=== PATIENT | female | born 1970 | race African-American/Black ===

== ENCOUNTER 2017-07-30 20:07 | Emergency (ER) | payer OTHER ==
[~2017-07-30] VITALS: Ht 172.7 cm; Wt 88.0 kg
[2017-07-30 20:11] VITALS: BP 140/98
== END 2017-07-30 20:35 | disposition left against medical advice (07) ==
LOC: ER 20:07
DX: Z00.8 Encounter for other general examination (principal); Z53.21 Procedure and treatment not carried out due to patient leaving prior to being seen by health care provider

== ENCOUNTER 2018-06-28 17:25 | Emergency (ER) | payer OTHER ==
[~2018-06-28] VITALS: Ht 167.6 cm; Wt 97.0 kg
[2018-06-28] MEDS ORDERED: LIDOCAINE HCL/EPINEPHRINE 1%-EPI 1:100,000 50 ML VIAL INFIL SCH (19:20)
[2018-06-28] MEDS ORDERED: LIDOCAINE HCL/EPINEPHRINE 1%-EPI 1:100,000 20 ML VIAL INFIL ONE (19:30)
[2018-06-28] MEDS ORDERED: TETANUS, DIPHTHERIA, PERTUSSIS VAC/PF 0.5ML (>7YR OLD) IM ONE (21:00)
[2018-06-28] MEDS ORDERED: HYDROCODONE/ACETAMINOPHEN 5/325MG TABLET PO ONE (21:00)
[2018-06-28 22:00] VITALS: BP 132/76
== END 2018-06-28 22:00 | disposition home or self-care (01) ==
LOC: ER 17:26
DX: S51.811A Laceration without foreign body of right forearm, initial encounter (principal); J45.909 Unspecified asthma, uncomplicated; I10 Essential (primary) hypertension; Y08.89XA Assault by other specified means, initial encounter; Y93.89 Activity, other specified; Y92.89 Other specified places as the place of occurrence of the external cause; Y99.8 Other external cause status
CPT/HCPCS: 12034; 73090; 90471; 90715; 99284; J3490; Z7610

== ENCOUNTER 2018-07-17 10:48 | Emergency (ER) | payer MEDICAID, OTHER ==
[~2018-07-17] VITALS: Ht 170.2 cm; Wt 117.5 kg
[2018-07-17 10:54] VITALS: BP 156/98
== END 2018-07-17 11:45 | disposition home or self-care (01) ==
LOC: ER 11:22
DX: S51.811D Laceration without foreign body of right forearm, subsequent encounter (principal); J45.909 Unspecified asthma, uncomplicated; I10 Essential (primary) hypertension; X58.XXXD Exposure to other specified factors, subsequent encounter; Z48.02 Encounter for removal of sutures
CPT/HCPCS: 99281; Z7610

== ENCOUNTER 2023-08-24 18:38 | Inpatient (IN) | payer MEDICAID, OTHER ==
[~2023-08-24] VITALS: Ht 167.6 cm; Wt 136.1 kg
[2023-08-24] MEDS ORDERED: EPINEPHRINE 1:1000 1 MG/ML AMP IM ONE (19:00)
[2023-08-24] MEDS ORDERED: METHYLPREDNISOLONE SOD SUCC 125MG/2ML (ACT-O-VIAL) IV ONE (19:00)
[2023-08-24] MEDS ORDERED: KETAMINE HCL 50 MG/ML 10ML IV ONE (19:00)
[2023-08-24] MEDS ORDERED: DIPHENHYDRAMINE 50MG/ML VIAL IV ONE (19:00)
[2023-08-24] MEDS ORDERED: SUCCINYLCHOLINE CHLORIDE 200MG/10ML IV ONE (19:00)
[2023-08-24] MEDS ORDERED: ONDANSETRON HCL 4MG/2ML INJ ONE (19:06)
[2023-08-24] MEDS ORDERED: ONDANSETRON HCL 4MG/2ML INJ IV ONE (19:15)
[2023-08-24] MEDS ORDERED: FENTANYL 2500MCG/250ML PMX 250 ML IV PRN (19:45)
[2023-08-24] MEDS ORDERED: MIDAZOLAM HCL 100 MG in SODIUM CHLORIDE 0.9% 100 ML IV PRN (19:45)
[2023-08-24] MEDS ORDERED: MIDAZOLAM 100MG/100ML PMX 100 ML IV PRN (19:45)
[2023-08-24] MEDS ORDERED: TRANEXAMIC ACID 1,000 MG/10 ML IV ONE (19:45)
[2023-08-24] MEDS ORDERED: FENTANYL CITRATE 2,500 MCG in SODIUM CHLORIDE 0.9% 200 ML IV PRN (19:45)
[2023-08-24] MEDS ORDERED: EPINEPHRINE 10 MG in SODIUM CHLORIDE 0.9% 240 ML IV PRN ×4 (20:00)
[2023-08-24] MEDS ORDERED: ATOR20TA65 PO (20:48)
[2023-08-24] MEDS ORDERED: LISI20TA31 PO (20:48)
[2023-08-24] MEDS ORDERED: HYDR-4009 PO (20:48)
[2023-08-24] MEDS ORDERED: CARI350T27 PO (20:48)
[2023-08-24] MEDS ORDERED: HYDR50TA PO (20:48)
[2023-08-24] MEDS ORDERED: AMLO10TA80 PO (20:48)
[2023-08-24 20:57] VITALS: PULSE 103; RESP 28
[2023-08-24] MEDS ORDERED: FAMOTIDINE 20MG/2ML VIAL IV SCH (21:00)
[2023-08-24] MEDS ORDERED: RACEPINEPHRINE 2.25% 0.5ML NEB VIAL HHN NR (21:15)
[2023-08-24 21:37] LABS: BASOPHILS % 0.1 % (0.0-2.0); EOSINOPHILS % 0.6 % (0.0-5.0); HEMATOCRIT. 30.4 % (36.0-48.0); HEMOGLOBIN. 9.9 g/dL (12.0-16.0); LYMPHOCYTES % 15.7 % (20.0-50.0); MEAN CORPUSCULAR HEMOGLOBIN 31.8 pg (28.0-32.0); MEAN CORPUSCULAR HGB CONC 32.7 g/dL (31.0-37.0); MEAN CORPUSCULAR VOLUME 97.4 fL (81.0-99.0); MEAN PLATELET VOLUME 7.4 fl (7.4-10.4); MONOCYTES % 1.5 % (2.0-8.0); NEUTROPHILS % 82.1 % (40.0-76.0); PLATELET 290 x1000/uL (130-400); RED BLOOD CELL COUNT 3.13 mill/uL (4.2-5.4); RED CELL DISTRIBUTION WIDTH 17.5 % (11.6-14.6); WHITE BLOOD COUNT 13.1 x1000/uL (4.5-11.0)
[2023-08-24] MEDS: PROPOFOL 10MG/ML 100ML 100 ML IV PRN (21:43)
[2023-08-24] MEDS ORDERED: CEFEPIME 2,000 MG in DEXT 5% WATER 100 ML IV SCH (22:00)
[2023-08-24] MEDS ORDERED: VANCOMYCIN 1G PREMIX 200 ML IV SCH (22:00)
[2023-08-24 22:03] LABS: BG CARBOXYHEMOGLOBIN 0.3 % (0.5-1.5); BG DEOXYHEMOGLOBIN 2.9 % (0.0-5.0); BG FRACTION INSPIRED OXYGEN 100; BG HCO3 ACT 22.4 mmol/L (22.0-26.0); BG METHEMOGLOBIN 0.1 % (0.0-1.5); BG OXYGEN SATURATION 97.1 % (92.0-98.5); BG OXYHEMOGLOBIN 96.7 % (94.0-97.0); BG PCO2 46.3 mmHg (35.0-45.0); BG PH 7.303 (7.350-7.450); BG PO2 101.3 mmHg (75.0-100.0); BG SAMPLE SITE LEFT BRACHIAL; BG TOTAL HEMOGLOBIN 11.6 g/dL (12.0-18.0); BG TOTAL RESPIRATORY RATE 21 b/min; BG VENT MODE VENT - AC
[2023-08-24 22:04] LABS: CHLORIDE 108 mEq/L (98-107); INDEX HEMOLYSI 1 (1-3); INDEX ICTERIC 1 (1-4); INDEX LIPEMIC 1 (1-3); POTASSIUM 3.3 mEq/L (3.5-5.1); SODIUM 143 mEq/L (136-145)
[2023-08-24] MEDS: VANCOMYCIN 1G PREMIX 200 ML IV SCH (22:05)
[2023-08-24 22:13] LABS: ALANINE AMINOTRANSFERASE 45 IU/L (13-61); ALBUMIN 3.1 g/dL (3.4-5.0); ASPARTATE AMINOTRANSFERASE 58 IU/L (15-37); BILIRUBIN TOTAL 0.4 mg/dL (0.1-1.0); CALCIUM 7.5 mg/dL (8.5-10.1); CARBON DIOXIDE 27 mEq/L (21-32); GLUCOSE 319 mg/dL (70-105); PROTEIN TOTAL 6.2 g/dL (6.0-8.3); TROPONIN I HIGH SENSITIVITY 48 ng/L (<54); UREA NITROGEN BLOOD 8 mg/dL (7-21)
[2023-08-24] MEDS ORDERED: KCL 20MEQ/100ML PREMIX 100 ML IV NR (22:15)
[2023-08-24 22:30] VITALS: PULSE 114; RESP 19
[2023-08-25] VITALS (90 sets, daily range): BP systolic 107–203; BP diastolic 55–118; PULSE 66–139; RESP 15–47; TEMP 97–100.8
[2023-08-25] MEDS ORDERED: RACEPINEPHRINE 2.25% 0.5ML NEB VIAL HHN PRN (01:00)
[2023-08-25] MEDS ORDERED: PHENYLEPHRINE 100 MG in DEXT 5% WATER 240 ML IV PRN (01:45)
[2023-08-25] MEDS ORDERED: MIDAZOLAM 100MG/100ML PMX 100 ML IV PRN (02:45)
[2023-08-25] MEDS: PROPOFOL 10MG/ML 100ML 100 ML IV PRN ×7 (02:54→23:43)
[2023-08-25] MEDS: MIDAZOLAM HCL 100 MG in SODIUM CHLORIDE 0.9% 100 ML IV PRN ×2 (04:46→23:43)
[2023-08-25] MEDS: FENTANYL CITRATE/PF 2,500 MCG in SODIUM CHLORIDE 0.9% 200 ML IV PRN (04:46)
[2023-08-25 05:08] LABS: HEMATOCRIT 31.9 % (36.0-48.0); HEMOGLOBIN 10.4 g/dL (12.0-16.0)
[2023-08-25] MEDS ORDERED: METHYLPREDNISOLONE SOD SUCC 125MG/2ML (ACT-O-VIAL) IV SCH ×2 (06:00→14:30)
[2023-08-25] MEDS: IPRATROPIUM/ALBUTEROL 0.5-3(2.5)MG/3ML NEB HHN SCH ×3 (08:00→21:00)
[2023-08-25 08:26] LABS: BG BASE EXCESS -4.6 mmol/L (-2.0-2.0); BG CARBOXYHEMOGLOBIN 0.2 % (0.5-1.5); BG DEOXYHEMOGLOBIN 0.8 % (0.0-5.0); BG FRACTION INSPIRED OXYGEN 100; BG HCO3 ACT 21.1 mmol/L (22.0-26.0); BG OXYGEN SATURATION 99.2 % (92.0-98.5); BG PCO2 41.3 mmHg (35.0-45.0); BG PH 7.326 (7.350-7.450); BG SAMPLE SITE RIGHT RADIAL; BG TOTAL HEMOGLOBIN 10.9 g/dL (12.0-18.0); BG VENT MODE VENT - AC
[2023-08-25 08:28] LABS: HEMATOCRIT 29.2 % (36.0-48.0); HEMOGLOBIN 9.8 g/dL (12.0-16.0); MEAN CORPUSCULAR HEMOGLOBIN 31.7 pg (28.0-32.0); MEAN CORPUSCULAR HGB CONC 33.4 g/dL (31.0-37.0); PLATELET 227 x1000/uL (130-400); RED BLOOD CELL COUNT 3.08 mill/uL (4.2-5.4); RED CELL DISTRIBUTION WIDTH 17.2 % (11.6-14.6); WHITE BLOOD COUNT 12.6 x1000/uL (4.5-11.0)
[2023-08-25] MEDS ORDERED: DEXTROSE 50% WATER 50ML SYRINGE IV PRN (09:45)
[2023-08-25 10:39] LABS: T4 FREE 0.77 ng/dL (0.76-1.46); THYROID STIMULATING HORMONE 0.34 uIU/mL (0.36-3.74)
[2023-08-25 10:51] LABS: PHOSPHORUS 2.6 mg/dL (2.5-4.9)
[2023-08-25 11:11] LABS: CHLORIDE 111 mEq/L (98-107); INDEX HEMOLYSI 1 (1-3); INDEX ICTERIC 1 (1-4); INDEX LIPEMIC 1 (1-3); POTASSIUM 4.1 mEq/L (3.5-5.1); SODIUM 140 mEq/L (136-145)
[2023-08-25 11:19] LABS: CALCIUM 8.4 mg/dL (8.5-10.1); CARBON DIOXIDE 21 mEq/L (21-32); CREATININE 0.7 mg/dL (0.6-1.3); GLUCOSE 184 mg/dL (70-105); UREA NITROGEN BLOOD 9 mg/dL (7-21)
[2023-08-25] MEDS: BLOOD SUGAR DIAGNOSTIC STRIP TEST SCH ×3 (11:30→21:00)
[2023-08-25] MEDS: INSULIN LISPRO 100 UNITS/ML SUBCUT SCH ×3 (12:00→21:00)
[2023-08-25] MEDS ORDERED: DIPHENHYDRAMINE 50MG/ML VIAL IV NR (14:30)
[2023-08-25] MEDS: MONTELUKAST SODIUM 10MG TABLET PO SCH (18:14)
[2023-08-25] MEDS: METHYLPREDNISOLONE SOD SUCC 125MG/2ML (ACT-O-VIAL) IV SCH (18:14)
[2023-08-25] MEDS ORDERED: ACETAMINOPHEN 325MG TABLET PO PRN (19:00)
[2023-08-25] MEDS ORDERED: ONDANSETRON HCL 4MG/2ML INJ IV PRN (19:00)
[2023-08-25] MEDS ORDERED: VANCOMYCIN 1G PREMIX 200 ML IV SCH (19:00)
[2023-08-25] MEDS: DEXT 5%/0.45% NACL 1000ML 1,000 ML IV SCH (19:06)
[2023-08-25] MEDS: HYDRALAZINE 20MG/ML VIAL IV PRN (20:08)
[2023-08-25] MEDS ORDERED: NALOXONE HCL 0.4MG/ML VIAL IV PRN (20:45)
[2023-08-25] MEDS: MORPHINE SULFATE 2 MG/ML CPJ (NOT FOR IM USE) IV PRN (21:02)
[2023-08-25] MEDS: PIPERACILLIN/TAZOBACTAM 3.375 G in DEXTROSE 5% WATER 50 ML IV SCH (21:04)
[2023-08-25] MEDS: VANCOMYCIN 1G PREMIX 200 ML IV SCH ×2 (21:04→21:06)
[2023-08-25] MEDS: FAMOTIDINE 20MG/2ML VIAL IV SCH (21:05)
[2023-08-25 21:24] LABS: BG BASE EXCESS -3.4 mmol/L (-2.0-2.0); BG DEOXYHEMOGLOBIN 15.8 % (0.0-5.0); BG FRACTION INSPIRED OXYGEN 40; BG HCO3 ACT 20.5 mmol/L (22.0-26.0); BG METHEMOGLOBIN 0.4 % (0.0-1.5); BG OXYGEN SATURATION 84.1 % (92.0-98.5); BG OXYHEMOGLOBIN 83.8 % (94.0-97.0); BG PCO2 32.8 mmHg (35.0-45.0); BG PH 7.413 (7.350-7.450); BG PO2 50.1 mmHg (75.0-100.0); BG TOTAL HEMOGLOBIN 10.6 g/dL (12.0-18.0); BG VENT MODE VENT - AC
[2023-08-26] VITALS (69 sets, daily range): BP systolic 106–158; BP diastolic 61–104; PULSE 77–125; RESP 13–26; TEMP 98–99
[2023-08-26] MEDS: IPRATROPIUM/ALBUTEROL 0.5-3(2.5)MG/3ML NEB HHN SCH ×4 (00:20→20:30)
[2023-08-26] MEDS: METHYLPREDNISOLONE SOD SUCC 125MG/2ML (ACT-O-VIAL) IV SCH ×4 (01:07→18:01)
[2023-08-26] MEDS: PROPOFOL 10MG/ML 100ML 100 ML IV PRN ×7 (02:41→22:48)
[2023-08-26] MEDS: FENTANYL CITRATE/PF 2,500 MCG in SODIUM CHLORIDE 0.9% 200 ML IV PRN ×2 (03:43→18:58)
[2023-08-26 04:38] LABS: HEMATOCRIT. 24.6 % (36.0-48.0); HEMOGLOBIN. 8.1 g/dL (12.0-16.0); MEAN CORPUSCULAR HEMOGLOBIN 31.7 pg (28.0-32.0); MEAN CORPUSCULAR HGB CONC 33.1 g/dL (31.0-37.0); MEAN CORPUSCULAR VOLUME 95.9 fL (81.0-99.0); MEAN PLATELET VOLUME 7.5 fl (7.4-10.4); PLATELET 184 x1000/uL (130-400); RED BLOOD CELL COUNT 2.57 mill/uL (4.2-5.4); RED CELL DISTRIBUTION WIDTH 16.7 % (11.6-14.6); WHITE BLOOD COUNT 13.6 x1000/uL (4.5-11.0)
[2023-08-26 05:03] LABS: CHLORIDE 105 mEq/L (98-107); INDEX HEMOLYSI 2 (1-3); INDEX ICTERIC 1 (1-4); INDEX LIPEMIC 1 (1-3); POTASSIUM 4.4 mEq/L (3.5-5.1); SODIUM 137 mEq/L (136-145)
[2023-08-26 05:05] LABS: DIFFERENTIAL COMMENT 1
[2023-08-26 05:14] LABS: CALCIUM 7.9 mg/dL (8.5-10.1); CARBON DIOXIDE 26 mEq/L (21-32); CREATININE 0.7 mg/dL (0.6-1.3); GLUCOSE 155 mg/dL (70-105); TRIGLYCERIDE 123 mg/dL (0-150); UREA NITROGEN BLOOD 12 mg/dL (7-21)
[2023-08-26] MEDS: PIPERACILLIN/TAZOBACTAM 3.375 G in DEXTROSE 5% WATER 50 ML IV SCH ×2 (05:38→14:00)
[2023-08-26] MEDS: BLOOD SUGAR DIAGNOSTIC STRIP TEST SCH ×4 (06:29→21:00)
[2023-08-26] MEDS: FAMOTIDINE 20MG/2ML VIAL IV SCH ×2 (08:30→18:01)
[2023-08-26] MEDS: INSULIN LISPRO 100 UNITS/ML SUBCUT SCH ×4 (08:32→21:00)
[2023-08-26] MEDS: DEXT 5%/0.45% NACL 1000ML 1,000 ML IV SCH ×2 (09:35→21:12)
[2023-08-26] MEDS: VANCOMYCIN 1G PREMIX 200 ML IV SCH ×2 (09:38→21:05)
[2023-08-26 11:24] LABS: BG BASE EXCESS 3.1 mmol/L (-2.0-2.0); BG CARBOXYHEMOGLOBIN 0.3 % (0.5-1.5); BG FRACTION INSPIRED OXYGEN 70; BG HCO3 ACT 29.3 mmol/L (22.0-26.0); BG METHEMOGLOBIN 0.5 % (0.0-1.5); BG OXYHEMOGLOBIN 98.2 % (94.0-97.0); BG PCO2 53.6 mmHg (35.0-45.0); BG PH 7.356 (7.350-7.450); BG PO2 167.5 mmHg (75.0-100.0); BG SAMPLE SITE RIGHT RADIAL; BG TOTAL HEMOGLOBIN 9.3 g/dL (12.0-18.0); BG VENT MODE VENT - AC
[2023-08-26 12:00] LABS: ANISOCYTOSIS 1+; PLATELET ESTIMATE NORMAL
[2023-08-26] MEDS: MIDAZOLAM HCL 100 MG in SODIUM CHLORIDE 0.9% 100 ML IV PRN ×2 (13:27→22:10)
[2023-08-26] MEDS ORDERED: DIPHENHYDRAMINE 50MG/ML VIAL IV NR (13:30)
[2023-08-26] MEDS: MONTELUKAST SODIUM 10MG TABLET PO SCH (18:00)
[2023-08-26] MEDS: QUETIAPINE FUMARATE 25MG TABLET NG SCH (21:05)
[2023-08-27] VITALS (58 sets, daily range): BP systolic 119–161; BP diastolic 54–101; PULSE 80–124; RESP 17–29; TEMP 98.2–100.4
[2023-08-27] MEDS: IPRATROPIUM/ALBUTEROL 0.5-3(2.5)MG/3ML NEB HHN SCH ×4 (00:02→20:35)
[2023-08-27] MEDS: PIPERACILLIN/TAZOBACTAM 3.375 G in DEXTROSE 5% WATER 50 ML IV SCH ×4 (00:07→22:00)
[2023-08-27] MEDS: METHYLPREDNISOLONE SOD SUCC 125MG/2ML (ACT-O-VIAL) IV SCH ×4 (00:11→18:29)
[2023-08-27 03:11] LABS: *AMPHETAMINES SCREEN URINE NEGATIVE (NEGATIVE); *BARBITURATES SCREEN URINE NEGATIVE (NEGATIVE); *BENZODIAZEPINES SCREEN URINE PRESUMTIVE POSITIVE (NEGATIVE); *COCAINE SCREEN URINE NEGATIVE (NEGATIVE); CANNABINOID URINE SCREEN NEGATIVE (NEGATIVE); ECSTASY MDMA SCREEN URINE NEGATIVE (NEGATIVE); OPIATES URINE SCREEN PRESUMTIVE POSITIVE (NEGATIVE); PHENCYCLIDINE URINE SCREEN NEGATIVE (NEGATIVE)
[2023-08-27 05:13] LABS: CHLORIDE 107 mEq/L (98-107); INDEX HEMOLYSI 2 (1-3); INDEX ICTERIC 1 (1-4); INDEX LIPEMIC 1 (1-3); POTASSIUM 4.5 mEq/L (3.5-5.1); SODIUM 140 mEq/L (136-145)
[2023-08-27 05:18] LABS: BASOPHILS % 0.1 % (0.0-2.0); EOSINOPHILS % 3.3 % (0.0-5.0); LYMPHOCYTES % 7.2 % (20.0-50.0); MEAN CORPUSCULAR HEMOGLOBIN 31.9 pg (28.0-32.0); MEAN CORPUSCULAR HGB CONC 33.6 g/dL (31.0-37.0); MEAN CORPUSCULAR VOLUME 95.2 fL (81.0-99.0); MONOCYTES % 6.1 % (2.0-8.0); NEUTROPHILS % 83.3 % (40.0-76.0); PLATELET 184 x1000/uL (130-400); RED BLOOD CELL COUNT 2.19 mill/uL (4.2-5.4); RED CELL DISTRIBUTION WIDTH 16.2 % (11.6-14.6); WHITE BLOOD COUNT 11.2 x1000/uL (4.5-11.0)
[2023-08-27 05:22] LABS: CALCIUM 8.3 mg/dL (8.5-10.1); CARBON DIOXIDE 31 mEq/L (21-32); CREATININE 0.7 mg/dL (0.6-1.3); GLUCOSE 144 mg/dL (70-105); TRIGLYCERIDE 256 mg/dL (0-150); UREA NITROGEN BLOOD 11 mg/dL (7-21)
[2023-08-27] MEDS: PROPOFOL 10MG/ML 100ML 100 ML IV PRN ×4 (05:47→21:15)
[2023-08-27 06:10] LABS: HEMATOCRIT. 20.8 % (36.0-48.0)
[2023-08-27] MEDS: BLOOD SUGAR DIAGNOSTIC STRIP TEST SCH ×4 (06:30→21:00)
[2023-08-27] MEDS: INSULIN LISPRO 100 UNITS/ML SUBCUT SCH ×4 (06:33→21:00)
[2023-08-27 08:13] LABS: COMPLEMENT C3 107 mg/dL (82-167); COMPLEMENT C4 19 mg/dL (12-38)
[2023-08-27 08:28] LABS: BG BASE EXCESS 4.2 mmol/L (-2.0-2.0); BG CARBOXYHEMOGLOBIN 0.3 % (0.5-1.5); BG FRACTION INSPIRED OXYGEN 50; BG HCO3 ACT 29.5 mmol/L (22.0-26.0); BG METHEMOGLOBIN 0.4 % (0.0-1.5); BG OXYHEMOGLOBIN 96.3 % (94.0-97.0); BG PCO2 48.3 mmHg (35.0-45.0); BG PH 7.403 (7.350-7.450); BG PO2 97.9 mmHg (75.0-100.0); BG SAMPLE SITE RIGHT RADIAL; BG TOTAL HEMOGLOBIN 7.6 g/dL (12.0-18.0); BG VENT MODE VENT - AC
[2023-08-27 10:11] LABS: EOSINOPHIL COUNT 400 /cu mm (0-450)
[2023-08-27] MEDS: QUETIAPINE FUMARATE 25MG TABLET NG SCH ×2 (10:17→21:00)
[2023-08-27] MEDS: FAMOTIDINE 20MG/2ML VIAL IV SCH ×2 (10:17→17:30)
[2023-08-27] MEDS: VANCOMYCIN 1G PREMIX 200 ML IV SCH ×2 (10:18→21:00)
[2023-08-27 10:37] LABS: INDEX HEMOLYSI 2 (1-3); INDEX ICTERIC 1 (1-4); INDEX LIPEMIC 1 (1-3)
[2023-08-27 10:58] LABS: IRON 30 ug/dL (50-175); TOTAL IRON BINDING CAPACITY 163 ug/dL (250-450)
[2023-08-27] MEDS: DEXT 5%/0.45% NACL 1000ML 1,000 ML IV SCH (11:00)
[2023-08-27] MEDS: MIDAZOLAM HCL 100 MG in SODIUM CHLORIDE 0.9% 100 ML IV PRN ×2 (12:18→19:55)
[2023-08-27] MEDS: MORPHINE SULFATE 2 MG/ML CPJ (NOT FOR IM USE) IV PRN ×2 (14:40→19:55)
[2023-08-27] MEDS: MONTELUKAST SODIUM 10MG TABLET PO SCH (17:30)
[2023-08-27 17:34] LABS: HEMATOCRIT 27.8 % (36.0-48.0); HEMOGLOBIN 9.2 g/dL (12.0-16.0); MEAN CORPUSCULAR HEMOGLOBIN 31.4 pg (28.0-32.0); MEAN CORPUSCULAR VOLUME 95.2 fL (81.0-99.0); PLATELET 201 x1000/uL (130-400); RED BLOOD CELL COUNT 2.92 mill/uL (4.2-5.4); RED CELL DISTRIBUTION WIDTH 16.5 % (11.6-14.6); WHITE BLOOD COUNT 16.3 x1000/uL (4.5-11.0)
[2023-08-27] MEDS: HYDRALAZINE 20MG/ML VIAL IV PRN (19:15)
[2023-08-27] MEDS: FENTANYL CITRATE/PF 2,500 MCG in SODIUM CHLORIDE 0.9% 200 ML IV PRN (19:55)
[2023-08-28] VITALS (98 sets, daily range): BP systolic 91–133; BP diastolic 50–107; PULSE 70–108; RESP 14–28; TEMP 96–98.8
[2023-08-28] MEDS: IPRATROPIUM/ALBUTEROL 0.5-3(2.5)MG/3ML NEB HHN SCH ×5 (00:18→20:47)
[2023-08-28] MEDS: DEXT 5%/0.45% NACL 1000ML 1,000 ML IV SCH ×2 (00:45→12:34)
[2023-08-28] MEDS: PROPOFOL 10MG/ML 100ML 100 ML IV PRN ×8 (03:30→22:47)
[2023-08-28 04:52] LABS: HEMATOCRIT 25.5 % (36.0-48.0); HEMOGLOBIN 8.4 g/dL (12.0-16.0); MEAN CORPUSCULAR HEMOGLOBIN 31.2 pg (28.0-32.0); MEAN CORPUSCULAR HGB CONC 32.8 g/dL (31.0-37.0); MEAN CORPUSCULAR VOLUME 95.3 fL (81.0-99.0); PLATELET 206 x1000/uL (130-400); RED BLOOD CELL COUNT 2.68 mill/uL (4.2-5.4); WHITE BLOOD COUNT 12.4 x1000/uL (4.5-11.0)
[2023-08-28 05:11] LABS: CHLORIDE 107 mEq/L (98-107); INDEX HEMOLYSI 1 (1-3); INDEX ICTERIC 1 (1-4); INDEX LIPEMIC 1 (1-3); SODIUM 141 mEq/L (136-145)
[2023-08-28 05:16] LABS: CALCIUM 8.1 mg/dL (8.5-10.1); CARBON DIOXIDE 29 mEq/L (21-32); CREATININE 0.7 mg/dL (0.6-1.3); GLUCOSE 160 mg/dL (70-105); TRIGLYCERIDE 134 mg/dL (0-150); UREA NITROGEN BLOOD 16 mg/dL (7-21)
[2023-08-28] MEDS: METHYLPREDNISOLONE SOD SUCC 125MG/2ML (ACT-O-VIAL) IV SCH ×4 (05:24→17:27)
[2023-08-28] MEDS: PIPERACILLIN/TAZOBACTAM 3.375 G in DEXTROSE 5% WATER 50 ML IV SCH ×3 (05:24→22:25)
[2023-08-28] MEDS: MIDAZOLAM HCL 100 MG in SODIUM CHLORIDE 0.9% 100 ML IV PRN ×2 (08:00→18:51)
[2023-08-28 08:40] LABS: BG BASE EXCESS 3.2 mmol/L (-2.0-2.0); BG CARBOXYHEMOGLOBIN 0.3 % (0.5-1.5); BG DEOXYHEMOGLOBIN 2.3 % (0.0-5.0); BG FRACTION INSPIRED OXYGEN 40; BG HCO3 ACT 27.8 mmol/L (22.0-26.0); BG METHEMOGLOBIN 0.3 % (0.0-1.5); BG OXYGEN SATURATION 97.7 % (92.0-98.5); BG OXYHEMOGLOBIN 97.1 % (94.0-97.0); BG PCO2 42.9 mmHg (35.0-45.0); BG PO2 108.6 mmHg (75.0-100.0); BG SAMPLE SITE LEFT RADIAL; BG TOTAL HEMOGLOBIN 7.7 g/dL (12.0-18.0); BG VENT MODE VENT - AC
[2023-08-28] MEDS: VANCOMYCIN 1G PREMIX 200 ML IV SCH ×2 (08:50→22:25)
[2023-08-28] MEDS: QUETIAPINE FUMARATE 25MG TABLET NG SCH (08:50)
[2023-08-28] MEDS: FAMOTIDINE 20MG/2ML VIAL IV SCH ×2 (08:50→17:27)
[2023-08-28] MEDS: BLOOD SUGAR DIAGNOSTIC STRIP TEST SCH ×3 (11:30→21:00)
[2023-08-28] MEDS: INSULIN LISPRO 100 UNITS/ML SUBCUT SCH ×3 (12:52→21:00)
[2023-08-28] MEDS: FENTANYL CITRATE/PF 2,500 MCG in SODIUM CHLORIDE 0.9% 200 ML IV PRN (16:36)
[2023-08-28] MEDS: MONTELUKAST SODIUM 10MG TABLET PO SCH (17:28)
[2023-08-28] MEDS: QUETIAPINE FUMARATE 50MG TABLET NG SCH (20:04)
[2023-08-29] VITALS (93 sets, daily range): BP systolic 98–165; BP diastolic 52–94; PULSE 70–95; RESP 0–42; TEMP 97.4
[2023-08-29] MEDS: METHYLPREDNISOLONE SOD SUCC 125MG/2ML (ACT-O-VIAL) IV SCH ×4 (00:04→17:24)
[2023-08-29] MEDS: IPRATROPIUM/ALBUTEROL 0.5-3(2.5)MG/3ML NEB HHN SCH ×4 (01:07→20:13)
[2023-08-29] MEDS: PROPOFOL 10MG/ML 100ML 100 ML IV PRN ×9 (01:31→22:08)
[2023-08-29] MEDS: DEXT 5%/0.45% NACL 1000ML 1,000 ML IV SCH ×2 (03:00→16:20)
[2023-08-29 05:18] LABS: HEMATOCRIT 22.4 % (36.0-48.0); HEMOGLOBIN 7.5 g/dL (12.0-16.0); MEAN CORPUSCULAR HEMOGLOBIN 31.8 pg (28.0-32.0); MEAN CORPUSCULAR HGB CONC 33.5 g/dL (31.0-37.0); PLATELET 204 x1000/uL (130-400); RED BLOOD CELL COUNT 2.36 mill/uL (4.2-5.4); RED CELL DISTRIBUTION WIDTH 16.7 % (11.6-14.6); WHITE BLOOD COUNT 11.1 x1000/uL (4.5-11.0)
[2023-08-29 05:21] LABS: CHLORIDE 108 mEq/L (98-107); INDEX HEMOLYSI 1 (1-3); INDEX ICTERIC 1 (1-4); INDEX LIPEMIC 1 (1-3); POTASSIUM 4.4 mEq/L (3.5-5.1); SODIUM 142 mEq/L (136-145)
[2023-08-29 05:31] LABS: ALANINE AMINOTRANSFERASE 21 IU/L (13-61); ALBUMIN 2.3 g/dL (3.4-5.0); ASPARTATE AMINOTRANSFERASE 16 IU/L (15-37); BILIRUBIN TOTAL 0.3 mg/dL (0.1-1.0); CARBON DIOXIDE 29 mEq/L (21-32); CREATININE 0.7 mg/dL (0.6-1.3); GLUCOSE 171 mg/dL (70-105); PROTEIN TOTAL 5.8 g/dL (6.0-8.3); TRIGLYCERIDE 141 mg/dL (0-150); UREA NITROGEN BLOOD 16 mg/dL (7-21)
[2023-08-29] MEDS: BLOOD SUGAR DIAGNOSTIC STRIP TEST SCH ×3 (06:08→18:00)
[2023-08-29] MEDS: PIPERACILLIN/TAZOBACTAM 3.375 G in DEXTROSE 5% WATER 50 ML IV SCH ×3 (06:08→21:52)
[2023-08-29] MEDS: INSULIN LISPRO 100 UNITS/ML SUBCUT SCH ×3 (06:53→17:25)
[2023-08-29] MEDS: MIDAZOLAM HCL 100 MG in SODIUM CHLORIDE 0.9% 100 ML IV PRN (06:56)
[2023-08-29 08:15] LABS: BG BASE EXCESS 5.3 mmol/L (-2.0-2.0); BG CARBOXYHEMOGLOBIN 0.3 % (0.5-1.5); BG DEOXYHEMOGLOBIN 3.2 % (0.0-5.0); BG HCO3 ACT 30.3 mmol/L (22.0-26.0); BG METHEMOGLOBIN 0.4 % (0.0-1.5); BG OXYGEN SATURATION 96.8 % (92.0-98.5); BG OXYHEMOGLOBIN 96.1 % (94.0-97.0); BG PCO2 47.8 mmHg (35.0-45.0); BG PO2 102.1 mmHg (75.0-100.0); BG SAMPLE SITE RIGHT RADIAL; BG TOTAL HEMOGLOBIN 7.4 g/dL (12.0-18.0); BG VENT MODE VENT - AC
[2023-08-29] MEDS: QUETIAPINE FUMARATE 50MG TABLET NG SCH ×2 (09:13→21:21)
[2023-08-29] MEDS: VANCOMYCIN 1G PREMIX 200 ML IV SCH ×2 (09:13→21:21)
[2023-08-29] MEDS: FAMOTIDINE 20MG/2ML VIAL IV SCH ×2 (09:13→17:24)
[2023-08-29] MEDS: MONTELUKAST SODIUM 10MG TABLET PO SCH (17:24)
[2023-08-29 21:32] LABS: HEMATOCRIT 22.7 % (36.0-48.0); HEMOGLOBIN 7.6 g/dL (12.0-16.0); MEAN CORPUSCULAR HEMOGLOBIN 32.6 pg (28.0-32.0); MEAN CORPUSCULAR HGB CONC 33.6 g/dL (31.0-37.0); PLATELET 260 x1000/uL (130-400); RED BLOOD CELL COUNT 2.34 mill/uL (4.2-5.4); RED CELL DISTRIBUTION WIDTH 16.5 % (11.6-14.6); WHITE BLOOD COUNT 15.4 x1000/uL (4.5-11.0)
[2023-08-29 23:19] LABS: PARTIAL THROMBOPLASTIN TIME 21.8 sec (23.4-31.0); PROTHROMBIN TIME 10.3 sec (9.6-11.0)
[2023-08-30] VITALS (95 sets, daily range): BP systolic 120–198; BP diastolic 40–127; PULSE 59–110; RESP 16–34; TEMP 97.8–98.5
[2023-08-30] MEDS: BLOOD SUGAR DIAGNOSTIC STRIP TEST SCH ×5 (00:06→23:55)
[2023-08-30] MEDS: METHYLPREDNISOLONE SOD SUCC 125MG/2ML (ACT-O-VIAL) IV SCH ×4 (00:11→17:25)
[2023-08-30] MEDS: INSULIN LISPRO 100 UNITS/ML SUBCUT SCH ×5 (00:13→23:34)
[2023-08-30] MEDS: PROPOFOL 10MG/ML 100ML 100 ML IV PRN ×10 (00:39→23:20)
[2023-08-30] MEDS: FENTANYL CITRATE/PF 2,500 MCG in SODIUM CHLORIDE 0.9% 200 ML IV PRN (00:40)
[2023-08-30] MEDS ORDERED: MIDAZOLAM HCL 100 MG in SODIUM CHLORIDE 0.9% 100 ML IV PRN (03:30)
[2023-08-30] MEDS ORDERED: FENTANYL 2500MCG/250ML PMX 250 ML IV ONE (03:30)
[2023-08-30] MEDS ORDERED: FENTANYL CITRATE 2,500 MCG in SODIUM CHLORIDE 0.9% 200 ML IV PRN (03:30)
[2023-08-30] MEDS ORDERED: MIDAZOLAM 100MG/100ML PMX 100 ML IV PRN (03:30)
[2023-08-30] MEDS: PIPERACILLIN/TAZOBACTAM 3.375 G in DEXTROSE 5% WATER 50 ML IV SCH ×2 (06:26→14:22)
[2023-08-30] MEDS: DEXT 5%/0.45% NACL 1000ML 1,000 ML IV SCH ×2 (06:27→20:22)
[2023-08-30] MEDS: QUETIAPINE FUMARATE 50MG TABLET NG SCH ×3 (09:00→21:42)
[2023-08-30 09:09] LABS: BG BASE EXCESS 4.5 mmol/L (-2.0-2.0); BG CARBOXYHEMOGLOBIN 0.3 % (0.5-1.5); BG DEOXYHEMOGLOBIN 4.4 % (0.0-5.0); BG FRACTION INSPIRED OXYGEN 40; BG HCO3 ACT 29.7 mmol/L (22.0-26.0); BG METHEMOGLOBIN 0.3 % (0.0-1.5); BG OXYGEN SATURATION 95.6 % (92.0-98.5); BG PCO2 47.8 mmHg (35.0-45.0); BG PH 7.411 (7.350-7.450); BG PO2 88.4 mmHg (75.0-100.0); BG SAMPLE SITE RIGHT RADIAL; BG TOTAL HEMOGLOBIN 9.2 g/dL (12.0-18.0); BG VENT MODE VENT - AC
[2023-08-30] MEDS: VANCOMYCIN 1G PREMIX 200 ML IV SCH ×2 (09:46→20:28)
[2023-08-30 10:27] LABS: DIFFERENTIAL COMMENT 1; HEMATOCRIT. 24.5 % (36.0-48.0); HEMOGLOBIN. 8.2 g/dL (12.0-16.0); MEAN CORPUSCULAR HEMOGLOBIN 31.6 pg (28.0-32.0); MEAN CORPUSCULAR HGB CONC 33.5 g/dL (31.0-37.0); MEAN CORPUSCULAR VOLUME 94.4 fL (81.0-99.0); PLATELET 211 x1000/uL (130-400); RED BLOOD CELL COUNT 2.59 mill/uL (4.2-5.4); WHITE BLOOD COUNT 11.7 x1000/uL (4.5-11.0)
[2023-08-30 11:31] LABS: CHLORIDE 108 mEq/L (98-107); INDEX HEMOLYSI 1 (1-3); INDEX ICTERIC 1 (1-4); INDEX LIPEMIC 1 (1-3); POTASSIUM 4.3 mEq/L (3.5-5.1); SODIUM 143 mEq/L (136-145)
[2023-08-30 11:35] LABS: CARBON DIOXIDE 32 mEq/L (21-32); CREATININE 0.6 mg/dL (0.6-1.3); GLUCOSE 178 mg/dL (70-105); TRIGLYCERIDE 104 mg/dL (0-150); UREA NITROGEN BLOOD 16 mg/dL (7-21)
[2023-08-30] MEDS: FAMOTIDINE 20MG/2ML VIAL IV SCH ×2 (11:53→17:24)
[2023-08-30] MEDS: HYDRALAZINE 20MG/ML VIAL IV PRN ×2 (14:22→21:43)
[2023-08-30 15:33] LABS: ANISOCYTOSIS 1+; NUCLEATED RED BLOOD CELLS 2 /100 WBC; PLATELET ESTIMATE NORMAL
[2023-08-30] MEDS: MONTELUKAST SODIUM 10MG TABLET PO SCH (17:25)
[2023-08-30] MEDS: MIDAZOLAM HCL 100 MG in SODIUM CHLORIDE 0.9% 100 ML IV PRN (22:00)
[2023-08-31] VITALS (100 sets, daily range): BP systolic 130–193; BP diastolic 54–119; PULSE 10–109; RESP 16–30; TEMP 98–100.1
[2023-08-31] MEDS: METHYLPREDNISOLONE SOD SUCC 125MG/2ML (ACT-O-VIAL) IV SCH ×4 (00:36→17:55)
[2023-08-31] MEDS: PROPOFOL 10MG/ML 100ML 100 ML IV PRN ×7 (02:13→22:34)
[2023-08-31 03:30] LABS: CLARITY URINE CLOUDY (CLEAR); COLOR URINE YELLOW (YELLOW); GLUCOSE URINE NEGATIVE (NEGATIVE); KETONES URINE NEGATIVE (NEGATIVE); LEUKOCYTE ESTERASE URINE NEGATIVE (NEGATIVE); NITRITE URINE NEGATIVE (NEGATIVE); OCCULT BLOOD URINE 3+ (NEGATIVE); PROTEIN URINE TRACE (NEGATIVE); SPECIFIC GRAVITY URINE 1.044 (1.005-1.030)
[2023-08-31 03:33] LABS: BACTERIA URINE NONE SEEN; SQUAMOUS EPITHELIAL CELL URINE NONE SEEN /lpf (RARE/1+); YEAST URINE NONE SEEN
[2023-08-31 04:56] LABS: RBC URINE 50-100 /hpf (0-2); WBC URINE 0-2 /hpf (0-2)
[2023-08-31 05:20] LABS: CHLORIDE 107 mEq/L (98-107); INDEX HEMOLYSI 1 (1-3); INDEX ICTERIC 1 (1-4); INDEX LIPEMIC 1 (1-3); POTASSIUM 4.2 mEq/L (3.5-5.1); SODIUM 141 mEq/L (136-145)
[2023-08-31 05:26] LABS: CALCIUM 7.6 mg/dL (8.5-10.1); CARBON DIOXIDE 32 mEq/L (21-32); CREATININE 0.6 mg/dL (0.6-1.3); GLUCOSE 168 mg/dL (70-105); TRIGLYCERIDE 126 mg/dL (0-150); UREA NITROGEN BLOOD 19 mg/dL (7-21)
[2023-08-31] MEDS: BLOOD SUGAR DIAGNOSTIC STRIP TEST SCH ×3 (05:26→18:00)
[2023-08-31] MEDS: INSULIN LISPRO 100 UNITS/ML SUBCUT SCH ×3 (05:26→17:59)
[2023-08-31] MEDS: IPRATROPIUM/ALBUTEROL 0.5-3(2.5)MG/3ML NEB HHN PRN (08:23)
[2023-08-31] MEDS: DEXT 5%/0.45% NACL 1000ML 1,000 ML IV SCH ×2 (08:54→22:31)
[2023-08-31] MEDS: FAMOTIDINE 20MG/2ML VIAL IV SCH ×2 (08:54→17:55)
[2023-08-31] MEDS: QUETIAPINE FUMARATE 50MG TABLET NG SCH ×2 (08:54→21:12)
[2023-08-31] MEDS ORDERED: LIDOCAINE HCL 1% 10 MG/ML 10ML VIAL ONE (08:59)
[2023-08-31 09:28] LABS: HEMATOCRIT. 32.2 % (36.0-48.0); HEMOGLOBIN. 10.5 g/dL (12.0-16.0); MEAN CORPUSCULAR HEMOGLOBIN 31.1 pg (28.0-32.0); MEAN CORPUSCULAR HGB CONC 32.6 g/dL (31.0-37.0); MEAN CORPUSCULAR VOLUME 95.6 fL (81.0-99.0); MEAN PLATELET VOLUME 7.2 fl (7.4-10.4); PLATELET 293 x1000/uL (130-400); RED BLOOD CELL COUNT 3.37 mill/uL (4.2-5.4); RED CELL DISTRIBUTION WIDTH 16.5 % (11.6-14.6); WHITE BLOOD COUNT 15.6 x1000/uL (4.5-11.0)
[2023-08-31 09:30] LABS: DIFFERENTIAL COMMENT 1
[2023-08-31 12:04] LABS: NUCLEATED RED BLOOD CELLS 2 /100 WBC
[2023-08-31 12:05] LABS: ANISOCYTOSIS 1+; PLATELET ESTIMATE NORMAL
[2023-08-31 13:32] LABS: BG BASE EXCESS 6.1 mmol/L (-2.0-2.0); BG CARBOXYHEMOGLOBIN 0.3 % (0.5-1.5); BG DEOXYHEMOGLOBIN 4.1 % (0.0-5.0); BG FRACTION INSPIRED OXYGEN 40; BG HCO3 ACT 30.3 mmol/L (22.0-26.0); BG METHEMOGLOBIN 0.3 % (0.0-1.5); BG OXYGEN SATURATION 95.9 % (92.0-98.5); BG OXYHEMOGLOBIN 95.3 % (94.0-97.0); BG PCO2 42.3 mmHg (35.0-45.0); BG PH 7.473 (7.350-7.450); BG PO2 81.5 mmHg (75.0-100.0); BG SAMPLE SITE RIGHT RADIAL; BG TOTAL HEMOGLOBIN 11.8 g/dL (12.0-18.0); BG VENT MODE VENT - AC
[2023-08-31] MEDS: MONTELUKAST SODIUM 10MG TABLET PO SCH (17:55)
[2023-08-31] MEDS: PIPERACILLIN/TAZOBACTAM 3.375 G in DEXTROSE 5% WATER 50 ML IV SCH (21:12)
[2023-09-01] VITALS (95 sets, daily range): BP systolic 127–208; BP diastolic 62–114; PULSE 80–125; RESP 20–35; TEMP 98.7–100.2
[2023-09-01] MEDS: METHYLPREDNISOLONE SOD SUCC 125MG/2ML (ACT-O-VIAL) IV SCH ×4 (00:20→18:38)
[2023-09-01] MEDS: BLOOD SUGAR DIAGNOSTIC STRIP TEST SCH ×4 (00:54→18:00)
[2023-09-01] MEDS: PROPOFOL 10MG/ML 100ML 100 ML IV PRN ×6 (01:00→22:29)
[2023-09-01 04:37] LABS: HEMATOCRIT. 27.3 % (36.0-48.0); HEMOGLOBIN. 9.2 g/dL (12.0-16.0); MEAN CORPUSCULAR HEMOGLOBIN 32.2 pg (28.0-32.0); MEAN CORPUSCULAR HGB CONC 33.6 g/dL (31.0-37.0); MEAN CORPUSCULAR VOLUME 95.6 fL (81.0-99.0); MEAN PLATELET VOLUME 7.4 fl (7.4-10.4); PLATELET 269 x1000/uL (130-400); RED BLOOD CELL COUNT 2.86 mill/uL (4.2-5.4); RED CELL DISTRIBUTION WIDTH 16.4 % (11.6-14.6); WHITE BLOOD COUNT 9.5 x1000/uL (4.5-11.0)
[2023-09-01 04:47] LABS: DIFFERENTIAL COMMENT 1
[2023-09-01 05:03] LABS: CHLORIDE 104 mEq/L (98-107); INDEX HEMOLYSI 1 (1-3); INDEX ICTERIC 1 (1-4); INDEX LIPEMIC 1 (1-3); POTASSIUM 4.2 mEq/L (3.5-5.1); SODIUM 139 mEq/L (136-145)
[2023-09-01 05:11] LABS: CALCIUM 8.3 mg/dL (8.5-10.1); CARBON DIOXIDE 33 mEq/L (21-32); CREATININE 0.6 mg/dL (0.6-1.3); GLUCOSE 197 mg/dL (70-105); UREA NITROGEN BLOOD 21 mg/dL (7-21)
[2023-09-01] MEDS: PIPERACILLIN/TAZOBACTAM 3.375 G in DEXTROSE 5% WATER 50 ML IV SCH ×3 (05:40→22:30)
[2023-09-01] MEDS: INSULIN LISPRO 100 UNITS/ML SUBCUT SCH ×4 (06:00→18:39)
[2023-09-01] MEDS: HYDRALAZINE 20MG/ML VIAL IV PRN ×3 (06:33→22:47)
[2023-09-01 08:46] LABS: BG BASE EXCESS 6.4 mmol/L (-2.0-2.0); BG CARBOXYHEMOGLOBIN 0.3 % (0.5-1.5); BG DEOXYHEMOGLOBIN 8.4 % (0.0-5.0); BG FRACTION INSPIRED OXYGEN 40; BG HCO3 ACT 29.9 mmol/L (22.0-26.0); BG METHEMOGLOBIN 0.2 % (0.0-1.5); BG OXYGEN SATURATION 91.6 % (92.0-98.5); BG OXYHEMOGLOBIN 91.1 % (94.0-97.0); BG PCO2 38.7 mmHg (35.0-45.0); BG PH 7.506 (7.350-7.450); BG PO2 59.5 mmHg (75.0-100.0); BG SAMPLE SITE RIGHT RADIAL; BG TOTAL HEMOGLOBIN 11.5 g/dL (12.0-18.0); BG TOTAL RESPIRATORY RATE 30 b/min; BG VENT MODE VENT - AC
[2023-09-01] MEDS: QUETIAPINE FUMARATE 50MG TABLET NG SCH ×2 (09:11→20:18)
[2023-09-01] MEDS: HYDRALAZINE 20MG/ML VIAL IV NR ×2 (09:11→19:33)
[2023-09-01] MEDS: FAMOTIDINE 20MG/2ML VIAL IV SCH (09:11)
[2023-09-01] MEDS ORDERED: DIPHENHYDRAMINE 50MG/ML VIAL IV NR (09:30)
[2023-09-01] MEDS: NITROGLYCERIN 0.1MG/HR PATCH TOP SCH (09:58)
[2023-09-01] MEDS ORDERED: METHYLPREDNISOLONE SOD SUCC 125MG/2ML (ACT-O-VIAL) IV NR (10:00)
[2023-09-01 10:03] LABS: ANISOCYTOSIS 1+; PLATELET ESTIMATE NORMAL
[2023-09-01] MEDS: AMLODIPINE 10MG TABLET PO SCH (10:20)
[2023-09-01] MEDS: MONTELUKAST SODIUM 10MG TABLET PO SCH (18:39)
[2023-09-02] VITALS (107 sets, daily range): BP systolic 119–182; BP diastolic 65–122; PULSE 83–119; RESP 21–35; TEMP 99.1–101.3
[2023-09-02] MEDS: METHYLPREDNISOLONE SOD SUCC 125MG/2ML (ACT-O-VIAL) IV SCH ×4 (00:11→20:03)
[2023-09-02] MEDS: BLOOD SUGAR DIAGNOSTIC STRIP TEST SCH ×5 (00:24→23:44)
[2023-09-02] MEDS: INSULIN LISPRO 100 UNITS/ML SUBCUT SCH ×4 (00:29→20:03)
[2023-09-02] MEDS: PROPOFOL 10MG/ML 100ML 100 ML IV PRN ×6 (00:51→21:40)
[2023-09-02] MEDS: HYDRALAZINE HCL 10MG TABLET PO SCH ×2 (01:00→16:05)
[2023-09-02] MEDS: HYDRALAZINE 20MG/ML VIAL IV PRN ×2 (02:21→07:22)
[2023-09-02] MEDS: PIPERACILLIN/TAZOBACTAM 3.375 G in DEXTROSE 5% WATER 50 ML IV SCH ×3 (05:45→22:16)
[2023-09-02 05:46] LABS: HEMATOCRIT. 31.6 % (36.0-48.0); HEMOGLOBIN. 10.5 g/dL (12.0-16.0); MEAN CORPUSCULAR HEMOGLOBIN 32.2 pg (28.0-32.0); MEAN CORPUSCULAR HGB CONC 33.2 g/dL (31.0-37.0); MEAN PLATELET VOLUME 7.8 fl (7.4-10.4); PLATELET 301 x1000/uL (130-400); RED BLOOD CELL COUNT 3.25 mill/uL (4.2-5.4); RED CELL DISTRIBUTION WIDTH 16.5 % (11.6-14.6); WHITE BLOOD COUNT 13.3 x1000/uL (4.5-11.0)
[2023-09-02 06:04] LABS: CHLORIDE 106 mEq/L (98-107); INDEX HEMOLYSI 2 (1-3); INDEX ICTERIC 1 (1-4); INDEX LIPEMIC 1 (1-3); POTASSIUM 3.9 mEq/L (3.5-5.1); SODIUM 141 mEq/L (136-145)
[2023-09-02 06:10] LABS: CALCIUM 8.1 mg/dL (8.5-10.1); CARBON DIOXIDE 30 mEq/L (21-32); CREATININE 0.5 mg/dL (0.6-1.3); GLUCOSE 186 mg/dL (70-105); TRIGLYCERIDE 122 mg/dL (0-150); UREA NITROGEN BLOOD 22 mg/dL (7-21)
[2023-09-02 07:39] LABS: DIFFERENTIAL COMMENT 1
[2023-09-02] MEDS: IPRATROPIUM/ALBUTEROL 0.5-3(2.5)MG/3ML NEB HHN PRN ×3 (08:10→16:35)
[2023-09-02 08:37] LABS: BG BASE EXCESS 7.2 mmol/L (-2.0-2.0); BG CARBOXYHEMOGLOBIN 0.3 % (0.5-1.5); BG DEOXYHEMOGLOBIN 6.7 % (0.0-5.0); BG FRACTION INSPIRED OXYGEN 65; BG HCO3 ACT 30.7 mmol/L (22.0-26.0); BG METHEMOGLOBIN 0.3 % (0.0-1.5); BG OXYGEN SATURATION 93.3 % (92.0-98.5); BG OXYHEMOGLOBIN 92.7 % (94.0-97.0); BG PCO2 39.2 mmHg (35.0-45.0); BG PH 7.512 (7.350-7.450); BG PO2 66.1 mmHg (75.0-100.0); BG SAMPLE SITE RIGHT RADIAL; BG TOTAL HEMOGLOBIN 11.5 g/dL (12.0-18.0); BG VENT MODE VENT - AC
[2023-09-02] MEDS: PANTOPRAZOLE SODIUM 40 MG/VIAL IV SCH (09:48)
[2023-09-02] MEDS: NITROGLYCERIN 0.1MG/HR PATCH TOP SCH (09:48)
[2023-09-02] MEDS: AMLODIPINE 10MG TABLET PO SCH (09:49)
[2023-09-02] MEDS: QUETIAPINE FUMARATE 50MG TABLET NG SCH ×2 (09:49→21:38)
[2023-09-02] MEDS: ACETAMINOPHEN 650MG/20.3ML UDC PO PRN ×2 (10:28→16:07)
[2023-09-02 11:17] LABS: PHOSPHORUS 3.4 mg/dL (2.5-4.9)
[2023-09-02 11:53] LABS: ANISOCYTOSIS 1+; NUCLEATED RED BLOOD CELLS 1 /100 WBC; PLATELET ESTIMATE NORMAL
[2023-09-02] MEDS: MONTELUKAST SODIUM 10MG TABLET PO SCH (16:04)
[2023-09-03] VITALS (93 sets, daily range): BP systolic 126–178; BP diastolic 62–142; PULSE 77–98; RESP 16–30; TEMP 98.7–99.5
[2023-09-03] MEDS: INSULIN LISPRO 100 UNITS/ML SUBCUT SCH ×5 (00:01→23:19)
[2023-09-03] MEDS: PROPOFOL 10MG/ML 100ML 100 ML IV PRN ×3 (02:14→18:06)
[2023-09-03 04:42] LABS: HEMATOCRIT. 27.4 % (36.0-48.0); HEMOGLOBIN. 9.2 g/dL (12.0-16.0); MEAN CORPUSCULAR HEMOGLOBIN 32.1 pg (28.0-32.0); MEAN CORPUSCULAR HGB CONC 33.7 g/dL (31.0-37.0); MEAN CORPUSCULAR VOLUME 95.3 fL (81.0-99.0); MEAN PLATELET VOLUME 7.1 fl (7.4-10.4); PLATELET 294 x1000/uL (130-400); RED BLOOD CELL COUNT 2.88 mill/uL (4.2-5.4); RED CELL DISTRIBUTION WIDTH 16.6 % (11.6-14.6); WHITE BLOOD COUNT 16.2 x1000/uL (4.5-11.0)
[2023-09-03 04:47] LABS: CHLORIDE 106 mEq/L (98-107); INDEX HEMOLYSI 1 (1-3); INDEX ICTERIC 1 (1-4); INDEX LIPEMIC 1 (1-3); SODIUM 141 mEq/L (136-145)
[2023-09-03 04:50] LABS: DIFFERENTIAL COMMENT 1
[2023-09-03 04:54] LABS: ALANINE AMINOTRANSFERASE 27 IU/L (13-61); ALBUMIN 2.5 g/dL (3.4-5.0); ASPARTATE AMINOTRANSFERASE 14 IU/L (15-37); BILIRUBIN TOTAL 0.6 mg/dL (0.1-1.0); CALCIUM 8.4 mg/dL (8.5-10.1); CARBON DIOXIDE 30 mEq/L (21-32); CREATININE 0.6 mg/dL (0.6-1.3); GLUCOSE 183 mg/dL (70-105); PROTEIN TOTAL 5.7 g/dL (6.0-8.3); UREA NITROGEN BLOOD 25 mg/dL (7-21)
[2023-09-03 05:32] LABS: PLATELET ESTIMATE NORMAL
[2023-09-03] MEDS: HYDRALAZINE HCL 10MG TABLET PO SCH ×3 (06:00→22:13)
[2023-09-03] MEDS: PIPERACILLIN/TAZOBACTAM 3.375 G in DEXTROSE 5% WATER 50 ML IV SCH ×3 (06:04→21:18)
[2023-09-03] MEDS: BLOOD SUGAR DIAGNOSTIC STRIP TEST SCH ×4 (06:04→23:18)
[2023-09-03] MEDS: METHYLPREDNISOLONE SOD SUCC 125MG/2ML (ACT-O-VIAL) IV SCH ×4 (06:08→17:08)
[2023-09-03] MEDS: AMLODIPINE 10MG TABLET PO SCH (09:03)
[2023-09-03] MEDS: PANTOPRAZOLE SODIUM 40 MG/VIAL IV SCH (09:03)
[2023-09-03] MEDS: QUETIAPINE FUMARATE 50MG TABLET NG SCH ×2 (09:03→21:18)
[2023-09-03 09:07] LABS: BG BASE EXCESS 7.3 mmol/L (-2.0-2.0); BG CARBOXYHEMOGLOBIN 0.3 % (0.5-1.5); BG DEOXYHEMOGLOBIN 2.8 % (0.0-5.0); BG FRACTION INSPIRED OXYGEN 65; BG METHEMOGLOBIN 0.1 % (0.0-1.5); BG OXYGEN SATURATION 97.2 % (92.0-98.5); BG OXYHEMOGLOBIN 96.8 % (94.0-97.0); BG PH 7.507 (7.350-7.450); BG PO2 101.3 mmHg (75.0-100.0); BG SAMPLE SITE RIGHT RADIAL; BG TOTAL HEMOGLOBIN 9.7 g/dL (12.0-18.0); BG VENT MODE VENT - AC
[2023-09-03] MEDS: NITROGLYCERIN 0.1MG/HR PATCH TOP SCH (10:07)
[2023-09-03] MEDS: MONTELUKAST SODIUM 10MG TABLET PO SCH (17:08)
[2023-09-03] MEDS ORDERED: PROPOFOL 10MG/ML 100ML 100 ML IV PRN (20:30)
[2023-09-04] VITALS (100 sets, daily range): BP systolic 113–175; BP diastolic 58–95; PULSE 74–105; RESP 18–30; TEMP 98.6–99.8
[2023-09-04] MEDS: PIPERACILLIN/TAZOBACTAM 3.375 G in DEXTROSE 5% WATER 50 ML IV SCH ×3 (05:08→21:15)
[2023-09-04] MEDS: HYDRALAZINE HCL 10MG TABLET PO SCH ×3 (05:09→21:14)
[2023-09-04] MEDS: PROPOFOL 10MG/ML 100ML 100 ML IV PRN ×2 (05:22→16:24)
[2023-09-04] MEDS: BLOOD SUGAR DIAGNOSTIC STRIP TEST SCH ×3 (05:36→17:00)
[2023-09-04] MEDS: INSULIN LISPRO 100 UNITS/ML SUBCUT SCH ×3 (05:36→17:01)
[2023-09-04 05:44] LABS: HEMATOCRIT. 27.1 % (36.0-48.0); HEMOGLOBIN. 8.9 g/dL (12.0-16.0); MEAN CORPUSCULAR HEMOGLOBIN 31.6 pg (28.0-32.0); MEAN CORPUSCULAR HGB CONC 32.8 g/dL (31.0-37.0); MEAN CORPUSCULAR VOLUME 96.2 fL (81.0-99.0); MEAN PLATELET VOLUME 7.3 fl (7.4-10.4); PLATELET 272 x1000/uL (130-400); RED BLOOD CELL COUNT 2.82 mill/uL (4.2-5.4); RED CELL DISTRIBUTION WIDTH 16.5 % (11.6-14.6); WHITE BLOOD COUNT 16.9 x1000/uL (4.5-11.0)
[2023-09-04 05:51] LABS: CHLORIDE 107 mEq/L (98-107); INDEX HEMOLYSI 1 (1-3); INDEX ICTERIC 1 (1-4); INDEX LIPEMIC 1 (1-3); SODIUM 141 mEq/L (136-145)
[2023-09-04 05:57] LABS: ALANINE AMINOTRANSFERASE 25 IU/L (13-61); ALBUMIN 2.4 g/dL (3.4-5.0); ASPARTATE AMINOTRANSFERASE 16 IU/L (15-37); BILIRUBIN TOTAL 0.8 mg/dL (0.1-1.0); CALCIUM 7.7 mg/dL (8.5-10.1); CARBON DIOXIDE 30 mEq/L (21-32); CREATININE 0.5 mg/dL (0.6-1.3); GLUCOSE 202 mg/dL (70-105); PROTEIN TOTAL 5.7 g/dL (6.0-8.3); TRIGLYCERIDE 99 mg/dL (0-150); UREA NITROGEN BLOOD 24 mg/dL (7-21)
[2023-09-04 06:01] LABS: DIFFERENTIAL COMMENT 1
[2023-09-04 07:57] LABS: BG BASE EXCESS 7.2 mmol/L (-2.0-2.0); BG CARBOXYHEMOGLOBIN 0.3 % (0.5-1.5); BG DEOXYHEMOGLOBIN 2.4 % (0.0-5.0); BG HCO3 ACT 31.3 mmol/L (22.0-26.0); BG METHEMOGLOBIN 0.4 % (0.0-1.5); BG OXYGEN SATURATION 97.6 % (92.0-98.5); BG OXYHEMOGLOBIN 96.9 % (94.0-97.0); BG PCO2 42.3 mmHg (35.0-45.0); BG PH 7.487 (7.350-7.450); BG PO2 111.1 mmHg (75.0-100.0); BG SAMPLE SITE RIGHT RADIAL; BG TOTAL HEMOGLOBIN 10.7 g/dL (12.0-18.0); BG VENT MODE VENT - AC
[2023-09-04] MEDS: AMLODIPINE 10MG TABLET PO SCH (08:00)
[2023-09-04] MEDS: PANTOPRAZOLE SODIUM 40 MG/VIAL IV SCH (08:00)
[2023-09-04] MEDS: QUETIAPINE FUMARATE 50MG TABLET NG SCH ×2 (08:00→21:13)
[2023-09-04] MEDS: METHYLPREDNISOLONE SOD SUCC 125MG/2ML (ACT-O-VIAL) IV SCH ×2 (08:01→16:25)
[2023-09-04] MEDS: NITROGLYCERIN 0.1MG/HR PATCH TOP SCH (09:38)
[2023-09-04 10:16] LABS: PLATELET ESTIMATE NORMAL
[2023-09-04] MEDS: MONTELUKAST SODIUM 10MG TABLET PO SCH (16:25)
[2023-09-05] VITALS (58 sets, daily range): BP systolic 119–220; BP diastolic 56–120; PULSE 83–130; RESP 21–39; TEMP 98.2–103.2
[2023-09-05] MEDS: BLOOD SUGAR DIAGNOSTIC STRIP TEST SCH ×3 (00:45→12:00)
[2023-09-05] MEDS: INSULIN LISPRO 100 UNITS/ML SUBCUT SCH ×3 (00:49→12:00)
[2023-09-05 04:29] LABS: HEMATOCRIT. 27.4 % (36.0-48.0); HEMOGLOBIN. 8.9 g/dL (12.0-16.0); MEAN CORPUSCULAR HEMOGLOBIN 31.2 pg (28.0-32.0); MEAN CORPUSCULAR HGB CONC 32.5 g/dL (31.0-37.0); MEAN PLATELET VOLUME 7.4 fl (7.4-10.4); PLATELET 192 x1000/uL (130-400); RED BLOOD CELL COUNT 2.86 mill/uL (4.2-5.4); RED CELL DISTRIBUTION WIDTH 16.6 % (11.6-14.6); WHITE BLOOD COUNT 19.3 x1000/uL (4.5-11.0)
[2023-09-05 04:38] LABS: CHLORIDE 108 mEq/L (98-107); INDEX HEMOLYSI 1 (1-3); INDEX ICTERIC 1 (1-4); INDEX LIPEMIC 1 (1-3); POTASSIUM 3.7 mEq/L (3.5-5.1); SODIUM 142 mEq/L (136-145)
[2023-09-05 04:46] LABS: ALANINE AMINOTRANSFERASE 34 IU/L (13-61); ALBUMIN 2.5 g/dL (3.4-5.0); ASPARTATE AMINOTRANSFERASE 19 IU/L (15-37); BILIRUBIN TOTAL 0.9 mg/dL (0.1-1.0); CARBON DIOXIDE 31 mEq/L (21-32); CREATININE 0.6 mg/dL (0.6-1.3); GLUCOSE 174 mg/dL (70-105); UREA NITROGEN BLOOD 21 mg/dL (7-21)
[2023-09-05 04:54] LABS: DIFFERENTIAL COMMENT 1
[2023-09-05] MEDS: ACETAMINOPHEN 650MG/20.3ML UDC PO PRN (05:20)
[2023-09-05] MEDS: CLONIDINE 0.1MG TABLET PO PRN (05:20)
[2023-09-05] MEDS: PIPERACILLIN/TAZOBACTAM 3.375 G in DEXTROSE 5% WATER 50 ML IV SCH ×3 (05:53→21:17)
[2023-09-05 05:54] LABS: PLATELET ESTIMATE NORMAL
[2023-09-05] MEDS: HYDRALAZINE HCL 10MG TABLET PO SCH ×3 (05:56→21:17)
[2023-09-05 09:01] LABS: BG BASE EXCESS 4.1 mmol/L (-2.0-2.0); BG DEOXYHEMOGLOBIN 2.8 % (0.0-5.0); BG FRACTION INSPIRED OXYGEN 50; BG HCO3 ACT 27.3 mmol/L (22.0-26.0); BG METHEMOGLOBIN 0.2 % (0.0-1.5); BG OXYGEN SATURATION 97.2 % (92.0-98.5); BG PCO2 35.4 mmHg (35.0-45.0); BG PEEP (cmH2O) 0 cmH2O; BG PH 7.505 (7.350-7.450); BG PO2 100.6 mmHg (75.0-100.0); BG SAMPLE SITE RIGHT RADIAL; BG TOTAL HEMOGLOBIN 9.5 g/dL (12.0-18.0); BG VENT MODE VENT - AC
[2023-09-05] MEDS: QUETIAPINE FUMARATE 50MG TABLET NG SCH ×2 (09:27→21:17)
[2023-09-05] MEDS: PANTOPRAZOLE SODIUM 40 MG/VIAL IV SCH (09:27)
[2023-09-05] MEDS: METHYLPREDNISOLONE SOD SUCC 125MG/2ML (ACT-O-VIAL) IV SCH ×2 (09:27→17:00)
[2023-09-05] MEDS: NITROGLYCERIN 0.1MG/HR PATCH TOP SCH (09:28)
[2023-09-05] MEDS: AMLODIPINE 10MG TABLET PO SCH (09:28)
[2023-09-05] MEDS ORDERED: VANCOMYCIN 1G PREMIX 200 ML IV SCH (17:00)
[2023-09-05] MEDS: MONTELUKAST SODIUM 10MG TABLET PO SCH (17:00)
[2023-09-05] MEDS: PROPOFOL 10MG/ML 100ML 100 ML IV PRN ×2 (19:54→23:55)
[2023-09-06] VITALS (33 sets, daily range): BP systolic 82–183; BP diastolic 42–103; PULSE 96–126; RESP 27–37; TEMP 98.6–99; O2SAT 95
[2023-09-06] MEDS: INSULIN LISPRO 100 UNITS/ML SUBCUT SCH ×3 (01:24→12:03)
[2023-09-06] MEDS: CLONIDINE 0.1MG TABLET PO PRN (01:24)
[2023-09-06] MEDS: PROPOFOL 10MG/ML 100ML 100 ML IV PRN ×2 (03:06→06:26)
[2023-09-06 05:13] LABS: HEMATOCRIT. 28.7 % (36.0-48.0); HEMOGLOBIN. 9.4 g/dL (12.0-16.0); MEAN CORPUSCULAR HEMOGLOBIN 31.6 pg (28.0-32.0); MEAN CORPUSCULAR HGB CONC 32.8 g/dL (31.0-37.0); MEAN CORPUSCULAR VOLUME 96.3 fL (81.0-99.0); MEAN PLATELET VOLUME 8.4 fl (7.4-10.4); PLATELET 127 x1000/uL (130-400); RED BLOOD CELL COUNT 2.98 mill/uL (4.2-5.4); RED CELL DISTRIBUTION WIDTH 16.9 % (11.6-14.6); WHITE BLOOD COUNT 18.7 x1000/uL (4.5-11.0)
[2023-09-06 05:20] LABS: DIFFERENTIAL COMMENT 1
[2023-09-06 05:47] LABS: CHLORIDE 108 mEq/L (98-107); INDEX HEMOLYSI 1 (1-3); INDEX ICTERIC 1 (1-4); INDEX LIPEMIC 1 (1-3); POTASSIUM 3.9 mEq/L (3.5-5.1); SODIUM 144 mEq/L (136-145)
[2023-09-06 05:55] LABS: ALANINE AMINOTRANSFERASE 35 IU/L (13-61); ALBUMIN 2.4 g/dL (3.4-5.0); ASPARTATE AMINOTRANSFERASE 18 IU/L (15-37); BILIRUBIN TOTAL 1.4 mg/dL (0.1-1.0); CALCIUM 8.3 mg/dL (8.5-10.1); CARBON DIOXIDE 29 mEq/L (21-32); CREATININE 0.9 mg/dL (0.6-1.3); GLUCOSE 217 mg/dL (70-105); PHOSPHORUS 2.5 mg/dL (2.5-4.9); PROTEIN TOTAL 6.1 g/dL (6.0-8.3); TRIGLYCERIDE 261 mg/dL (0-150); UREA NITROGEN BLOOD 27 mg/dL (7-21)
[2023-09-06] MEDS: HYDRALAZINE HCL 10MG TABLET PO SCH (06:24)
[2023-09-06] MEDS: BLOOD SUGAR DIAGNOSTIC STRIP TEST SCH ×3 (06:28→11:50)
[2023-09-06 07:42] LABS: BG BASE EXCESS 5.9 mmol/L (-2.0-2.0); BG CARBOXYHEMOGLOBIN 0.2 % (0.5-1.5); BG DEOXYHEMOGLOBIN 5.6 % (0.0-5.0); BG HCO3 ACT 28.8 mmol/L (22.0-26.0); BG METHEMOGLOBIN 0.4 % (0.0-1.5); BG OXYGEN SATURATION 94.4 % (92.0-98.5); BG OXYHEMOGLOBIN 93.8 % (94.0-97.0); BG PCO2 34.8 mmHg (35.0-45.0); BG PH 7.535 (7.350-7.450); BG SAMPLE SITE RIGHT RADIAL; BG TOTAL HEMOGLOBIN 9.9 g/dL (12.0-18.0); BG VENT MODE VENT - AC
[2023-09-06] MEDS: NITROGLYCERIN 0.1MG/HR PATCH TOP SCH (08:42)
[2023-09-06] MEDS: AMLODIPINE 10MG TABLET PO SCH (08:42)
[2023-09-06] MEDS: PANTOPRAZOLE SODIUM 40 MG/VIAL IV SCH (08:42)
[2023-09-06] MEDS: METHYLPREDNISOLONE SOD SUCC 125MG/2ML (ACT-O-VIAL) IV SCH (08:43)
[2023-09-06] MEDS: QUETIAPINE FUMARATE 50MG TABLET NG SCH (08:43)
[2023-09-06] MEDS ORDERED: CEFEPIME 2,000 MG in DEXT 5% WATER 100 ML IV SCH ×2 (10:00→18:00)
[2023-09-06 10:37] LABS: ANISOCYTOSIS 1+; NUCLEATED RED BLOOD CELLS 2 /100 WBC; PLATELET ESTIMATE NORMAL
[2023-09-06] MEDS ORDERED: PROPOFOL 10MG/ML 100ML 100 ML IV PRN (11:00)
[2023-09-06] MEDS ORDERED: HYDRALAZINE HCL 25MG TABLET PO SCH (14:00)
== END 2023-09-06 13:21 | disposition short-term general hospital (02) | DRG 811 ==
LOC: ER 18:38 → MICUSO 21:53 → EDBEDREQ 22:18 → MICUSO 08-25 00:15
PROVIDERS: ADMIT Internal Medicine; ATTEND Internal Medicine
PROC: 30233N1 Transfusion of Nonautologous Red Blood Cells into Peripheral Vein, Percutaneous Approach (ICD-10-PCS; 2023-08-24)
PROC: 30233R1 Transfusion of Nonautologous Platelets into Peripheral Vein, Percutaneous Approach (ICD-10-PCS; 2023-08-24)
PROC: 30233K1 Transfusion of Nonautologous Frozen Plasma into Peripheral Vein, Percutaneous Approach (ICD-10-PCS; 2023-08-24)
PROC: 5A1955Z Respiratory Ventilation, Greater than 96 Consecutive Hours (ICD-10-PCS; principal; 2023-08-25)
PROC: 0BH17EZ Insertion of Endotracheal Airway into Trachea, Via Natural or Artificial Opening (ICD-10-PCS; 2023-08-25)
PROC: 05HY33Z Insertion of Infusion Device into Upper Vein, Percutaneous Approach (ICD-10-PCS; 2023-08-31)
PROC: 4A10X4Z Monitoring of Central Nervous Electrical Activity, External Approach (ICD-10-PCS; 2023-09-02)
PROC: 0W9930Z Drainage of Right Pleural Cavity with Drainage Device, Percutaneous Approach (ICD-10-PCS; 2023-09-02)
PROC: 0W9B30Z Drainage of Left Pleural Cavity with Drainage Device, Percutaneous Approach (ICD-10-PCS; 2023-09-02)
DX: T78.3XXA Angioneurotic edema, initial encounter (principal); J96.01 Acute respiratory failure with hypoxia; J69.0 Pneumonitis due to inhalation of food and vomit; J93.0 Spontaneous tension pneumothorax; G93.41 Metabolic encephalopathy; R56.9 Unspecified convulsions; E44.1 Mild protein-calorie malnutrition; T78.2XXA Anaphylactic shock, unspecified, initial encounter; D62 Acute posthemorrhagic anemia; T79.7XXA Traumatic subcutaneous emphysema, initial encounter; J45.909 Unspecified asthma, uncomplicated; E87.3 Alkalosis; E11.65 Type 2 diabetes mellitus with hyperglycemia; I10 Essential (primary) hypertension; X58.XXXA Exposure to other specified factors, initial encounter; D63.8 Anemia in other chronic diseases classified elsewhere; Z68.42 Body mass index [BMI] 45.0-49.9, adult; Z86.73 Personal history of transient ischemic attack (TIA), and cerebral infarction without residual deficits
CPT/HCPCS: 31500; 36415; 36573; 36600; 70491; 71045; 71260; 80048; 80053; 80061; 80202; 80305; 81003; 82330; 82375; 82728; 82805; 82962; 83036; 83540; 83550; 83605; 83735; 83880; 84100; 84145; 84439; 84443; 84478; 84484; 85014; 85018; 85025; 85027; 86160; 86850; 86900; 86920; 86927; 87070; 87077; 87186; 93005; 93306; 94002; 94003; 94640; 99285; A6261; C1725; C9113; J0360; J0692; J1200; J1815; J2250; J2270; J2370; J2405; J2543; J2704; J2930; J3010; J3370; J3480; J3490; J7050; J7060; P9016; P9017; P9034; A4315

== ENCOUNTER 2024-07-07 18:49 | Inpatient (IN) | payer OTHER ==
[~2024-07-07] VITALS: Ht 170.2 cm; Wt 78.0 kg
[~2024-07-07 18:49] MED LIST: AMLO10TA80 PO; ATOR20TA65 PO; CARI350T27 PO; HYDR-4009 PO; HYDR50TA PO; LISI20TA31 PO
[2024-07-07] MEDS ORDERED: LACTATED RINGERS 1,000 ML IV SCH (19:00)
[2024-07-07] MEDS ORDERED: CEFEPIME 2GM IN DEXT 5% 100ML IV ONE (19:00)
[2024-07-07] MEDS: NOREPINEPHRINE 8MG/250ML PMX 250 ML IV ONE (19:16)
[2024-07-07] MEDS: VANCOMYCIN 1G PREMIX 200 ML IV SCH ×2 (19:17→23:48)
[2024-07-07 19:54] LABS: CHLORIDE 92 mEq/L (98-107); SODIUM 139 mEq/L (136-145)
[2024-07-07 19:55] LABS: CALCIUM 9.5 mg/dL (8.7-10.4); CARBON DIOXIDE 28 mEq/L (21-32)
[2024-07-07 20:00] LABS: GLUCOSE 200 mg/dL (70-105); UREA NITROGEN BLOOD 48 mg/dL (9-23)
[2024-07-07 20:02] LABS: ACETAMINOPHEN < 2 ug/mL (10-30); ALANINE AMINOTRANSFERASE 12 IU/L (10-49); ALBUMIN 4.3 g/dL (3.2-4.8); ASPARTATE AMINOTRANSFERASE 17 IU/L (<34); BILIRUBIN DIRECT 0.2 mg/dL (<=3.0); BILIRUBIN TOTAL 0.6 mg/dL (0.1-1.0); PROTEIN TOTAL 7.5 g/dL (6.0-8.3)
[2024-07-07 20:10] LABS: BASOPHILS % 0.6 % (0.0-2.0); EOSINOPHILS % 0.1 % (0.0-5.0); HEMATOCRIT. 43.6 % (36.0-48.0); HEMOGLOBIN. 14.3 g/dL (12.0-16.0); LYMPHOCYTES % 31.7 % (20.0-50.0); MEAN CORPUSCULAR HEMOGLOBIN 32.2 pg (28.0-32.0); MEAN CORPUSCULAR HGB CONC 32.8 g/dL (31.0-37.0); MEAN CORPUSCULAR VOLUME 98.1 fL (81.0-99.0); MEAN PLATELET VOLUME 9.2 fl (7.4-10.4); MONOCYTES % 6.1 % (2.0-8.0); NEUTROPHILS % 61.5 % (40.0-76.0); PLATELET 363 x1000/uL (130-400); RED BLOOD CELL COUNT 4.44 mill/uL (4.2-5.4); RED CELL DISTRIBUTION WIDTH 16.8 % (11.6-14.6); WHITE BLOOD COUNT 14.5 x1000/uL (4.5-11.0)
[2024-07-07 20:40] LABS: CREATININE 8.1 mg/dL (0.6-1.0); ETHANOL BLOOD < 10 mg/dL (<10); POTASSIUM 2.5 mEq/L (3.5-5.1)
[2024-07-07] MEDS ORDERED: AMIODARONE HCL 900 MG in DEXT 5% WATER 482 ML IV STA (21:04)
[2024-07-07 21:09] LABS: TROPONIN I HIGH SENSITIVITY 77 ng/L (3.0-34)
[2024-07-07] MEDS ORDERED: AMIODARONE HCL 900 MG in DEXT 5% WATER 482 ML IV NR (21:30)
[2024-07-07] MEDS: KCL 20MEQ/100ML PREMIX 100 ML IV SCH ×2 (21:55→23:00)
[2024-07-07] MEDS: NOREPINEPHRINE 8MG/250ML PMX 250 ML IV NR (23:23)
[2024-07-07] MEDS ORDERED: ACETAMINOPHEN 325MG TABLET PO PRN (23:30)
[2024-07-07] MEDS ORDERED: VANCOMYCIN 1G PREMIX 200 ML IV SCH (23:30)
[2024-07-07] MEDS ORDERED: IPRATROPIUM/ALBUTEROL 0.5-3(2.5)MG/3ML NEB HHN PRN (23:30)
[2024-07-07] MEDS ORDERED: CLONIDINE 0.1MG TABLET PO PRN (23:30)
[2024-07-07] MEDS ORDERED: DOCUSATE SODIUM 100MG CAPSULE PO PRN (23:30)
[2024-07-07] MEDS ORDERED: GUAIFENESIN 200MG/10ML SUGAR FREE UDC PO PRN (23:30)
[2024-07-07] MEDS: AMIODARONE HCL 150 MG in DEXT 5% WATER 100 ML IV ONE (23:55)
[2024-07-08] VITALS (7 sets, daily range): BP systolic 98–110; BP diastolic 58–72; PULSE 72–82; RESP 17–21; TEMP 36.22512–36.89184; O2SAT 97–100
[2024-07-08] MEDS ORDERED: POTASSIUM CHLORIDE 20MEQ TABLET SR PO ONE
[2024-07-08 02:36] LABS: LACTIC ACID 4.6 mmol/L (0.4-2.0)
[2024-07-08] MEDS: POTASSIUM CHLORIDE 20MEQ/PACKET PO NR (02:55)
[2024-07-08] MEDS: MAGNESIUM 2 G PREMIX 50 ML IV NR (03:09)
[2024-07-08] MEDS: MAGNESIUM 2 G PREMIX 50 ML IV ONE (03:11)
[2024-07-08] MEDS: CEFEPIME 2GM/100ML 100 ML IV NR (03:46)
[2024-07-08] MEDS: LACTATED RINGERS 1,000 ML IV SCH (04:43)
[2024-07-08] MEDS: ONDANSETRON HCL 4MG/2ML INJ IV PRN (04:45)
[2024-07-08 04:51] LABS: HEMATOCRIT 39.9 % (36.0-48.0); HEMOGLOBIN 13.7 g/dL (12.0-16.0); MEAN CORPUSCULAR HEMOGLOBIN 33.1 pg (28.0-32.0); MEAN CORPUSCULAR HGB CONC 34.3 g/dL (31.0-37.0); MEAN CORPUSCULAR VOLUME 96.6 fL (81.0-99.0); PLATELET 356 x1000/uL (130-400); RED BLOOD CELL COUNT 4.13 mill/uL (4.2-5.4); RED CELL DISTRIBUTION WIDTH 16.7 % (11.6-14.6); WHITE BLOOD COUNT 14.5 x1000/uL (4.5-11.0)
[2024-07-08] MEDS: PIPERACILLIN/TAZO 3.375G/50ML 50 ML IV SCH (04:56)
[2024-07-08 04:59] LABS: CHLORIDE 97 mEq/L (98-107); SODIUM 139 mEq/L (136-145)
[2024-07-08 05:00] LABS: CALCIUM 8.7 mg/dL (8.7-10.4); CARBON DIOXIDE 29 mEq/L (21-32)
[2024-07-08 05:05] LABS: CREATINE KINASE MB FRACTION 11.8 ng/mL (0.5-3.6); GLUCOSE 135 mg/dL (70-105); TRIGLYCERIDE 149 mg/dL (0-150); UREA NITROGEN BLOOD 48 mg/dL (9-23)
[2024-07-08 05:06] LABS: LDL CHOLESTEROL 163 mg/dL (5-100)
[2024-07-08 05:07] LABS: CHOLESTEROL 252 mg/dL (<200); CREATINE KINASE 148 IU/L (34-145); HDL CHOLESTEROL 48 mg/dL (>65); PHOSPHORUS 4.2 mg/dL (2.5-4.9)
[2024-07-08 05:09] LABS: THYROID STIMULATING HORMONE 0.95 uIU/mL (0.55-4.78)
[2024-07-08 07:02] LABS: CREATININE 6.6 mg/dL (0.6-1.0); POTASSIUM 2.3 mEq/L (3.5-5.1)
[2024-07-08 07:03] LABS: TROPONIN I HIGH SENSITIVITY 397 ng/L (3.0-34)
[2024-07-08] MEDS ORDERED: KCL 20MEQ/100ML PREMIX 100 ML IV SCH (08:00)
[2024-07-08] MEDS ORDERED: POTASSIUM CHLORIDE 40 MEQ in DEXT 5% WATER 230 ML IV ONE (08:00)
[2024-07-08] MEDS: POTASSIUM CHLORIDE 20MEQ/PACKET PO SCH (08:19)
[2024-07-08 08:26] LABS: TROPONIN I HIGH SENSITIVITY 379 ng/L (3.0-34)
[2024-07-08] MEDS: ENOXAPARIN 30MG/0.3ML SYR SUBCUT SCH (09:01)
[2024-07-08 11:54] LABS: TROPONIN I HIGH SENSITIVITY 298 ng/L (3.0-34)
[2024-07-08 14:15] LABS: CLARITY URINE TURBID (CLEAR); COLOR URINE YELLOW (YELLOW); GLUCOSE URINE NEGATIVE (NEGATIVE); KETONES URINE TRACE (NEGATIVE); LEUKOCYTE ESTERASE URINE 1+ (NEGATIVE); NITRITE URINE NEGATIVE (NEGATIVE); OCCULT BLOOD URINE 1+ (NEGATIVE); PROTEIN URINE 2+ (NEGATIVE); SPECIFIC GRAVITY URINE 1.022 (1.005-1.030); UROBILINOGEN URINE 0.2 E.U./dL (0.2-1.0)
[2024-07-08 14:36] LABS: BACTERIA URINE 4+; SQUAMOUS EPITHELIAL CELL URINE 3+ /lpf (RARE/1+)
[2024-07-08 14:37] LABS: WBC URINE 15-25 /hpf (0-2)
[2024-07-08 14:39] LABS: YEAST URINE FEW
[2024-07-08 15:16] LABS: T4 FREE 1.11 ng/dL (0.89-1.76)
[2024-07-08 17:12] LABS: CALCIUM 8.8 mg/dL (8.7-10.4)
[2024-07-08 17:17] LABS: CREATINE KINASE MB FRACTION 9.4 ng/mL (0.5-3.6)
[2024-07-08 17:17] LABS: PHOSPHORUS 4.7 mg/dL (2.5-4.9)
[2024-07-08 17:28] LABS: POTASSIUM 2.8 mEq/L (3.5-5.1)
[2024-07-08 17:29] LABS: CREATININE 5.3 mg/dL (0.6-1.0)
[2024-07-08 17:37] LABS: HEPATITIS B SURFACE ANTIGEN NEGATIVE (Negative)
[2024-07-08 17:58] LABS: HEPATITIS A AB IGM NEGATIVE (Negative); HEPATITIS B CORE AB IGM NEGATIVE (Negative)
[2024-07-08 17:59] LABS: HEPATITIS C AB NON REACTIVE (Neg) (Negative)
[2024-07-08] MEDS: FAMOTIDINE 20MG TABLET PO SCH (20:34)
[2024-07-08] MEDS: KCL 20MEQ/100ML PREMIX 100 ML IV SCH (20:35)
[2024-07-08] MEDS: LORAZEPAM 0.5MG TABLET PO PRN (21:31)
[2024-07-08 22:22] LABS: CHLORIDE 99 mEq/L (98-107); SODIUM 139 mEq/L (136-145)
[2024-07-08 22:23] LABS: CARBON DIOXIDE 31 mEq/L (21-32)
[2024-07-08 22:28] LABS: CREATININE 3.9 mg/dL (0.6-1.0); GLUCOSE 90 mg/dL (70-105); UREA NITROGEN BLOOD 42 mg/dL (9-23)
[2024-07-08 22:30] LABS: ALANINE AMINOTRANSFERASE 9 IU/L (10-49); ALBUMIN 3.5 g/dL (3.2-4.8); ASPARTATE AMINOTRANSFERASE 20 IU/L (<34); BILIRUBIN TOTAL 0.8 mg/dL (0.1-1.0); PROTEIN TOTAL 6.1 g/dL (6.0-8.3)
[2024-07-08 22:39] LABS: POTASSIUM 2.6 mEq/L (3.5-5.1)
[2024-07-09] VITALS: BP 111/65; PULSE 79; RESP 20; TEMP 36.61404; O2SAT 98
[2024-07-09] MEDS: POTASSIUM CHLORIDE 20MEQ/PACKET PO NR ×2 (00:07→08:56)
[2024-07-09 02:37] LABS: POTASSIUM 3.3 mEq/L (3.5-5.1)
[2024-07-09 04:00] VITALS: BP 103/66; PULSE 78; RESP 19; TEMP 36.3918; O2SAT 97
[2024-07-09 07:45] LABS: BASOPHILS % 0.3 % (0.0-2.0); EOSINOPHILS % 0.4 % (0.0-5.0); HEMATOCRIT. 37.2 % (36.0-48.0); HEMOGLOBIN. 12.6 g/dL (12.0-16.0); LYMPHOCYTES % 28.2 % (20.0-50.0); MEAN CORPUSCULAR HEMOGLOBIN 32.9 pg (28.0-32.0); MEAN CORPUSCULAR HGB CONC 33.9 g/dL (31.0-37.0); MEAN CORPUSCULAR VOLUME 97.2 fL (81.0-99.0); MEAN PLATELET VOLUME 9.8 fl (7.4-10.4); MONOCYTES % 7.1 % (2.0-8.0); PLATELET 252 x1000/uL (130-400); RED BLOOD CELL COUNT 3.83 mill/uL (4.2-5.4); RED CELL DISTRIBUTION WIDTH 16.3 % (11.6-14.6); WHITE BLOOD COUNT 6.7 x1000/uL (4.5-11.0)
[2024-07-09 08:00] VITALS: BP 105/71; PULSE 69; RESP 20; TEMP 36.78072; O2SAT 100
[2024-07-09 08:11] LABS: POTASSIUM 2.8 mEq/L (3.5-5.1)
[2024-07-09 08:12] LABS: CREATININE 2.2 mg/dL (0.6-1.0)
[2024-07-09] MEDS: KCL 20MEQ/100ML PREMIX 100 ML IV SCH (10:24)
[2024-07-09 12:00] VITALS: BP 100/68; PULSE 78; RESP 20; TEMP 36.50292; O2SAT 100
[2024-07-09] MEDS: PIPERACILLIN/TAZO 3.375G/50ML 50 ML IV SCH (15:30)
[2024-07-09 16:00] VITALS: BP 108/67; PULSE 48; RESP 20; TEMP 36.3918; O2SAT 100
[2024-07-09 20:00] VITALS: BP 122/76; PULSE 84; RESP 20; TEMP 36.16956; O2SAT 98
[2024-07-10] VITALS: BP 97/53; PULSE 82; RESP 18; TEMP 36.33624; O2SAT 99
[2024-07-10 04:00] VITALS: BP 122/76; PULSE 84; RESP 20; TEMP 36.16956; O2SAT 98
[2024-07-10 07:43] VITALS: BP 119/81; PULSE 71; RESP 20; TEMP 36.44736; O2SAT 98
[2024-07-10 07:58] LABS: CHLORIDE 102 mEq/L (98-107); POTASSIUM 3.1 mEq/L (3.5-5.1); SODIUM 140 mEq/L (136-145)
[2024-07-10 07:59] LABS: CALCIUM 9.1 mg/dL (8.7-10.4); CARBON DIOXIDE 31 mEq/L (21-32)
[2024-07-10 08:04] LABS: CREATININE 0.8 mg/dL (0.6-1.0); GLUCOSE 78 mg/dL (70-105); UREA NITROGEN BLOOD 24 mg/dL (9-23)
[2024-07-10 08:07] LABS: BASOPHILS % 0.7 % (0.0-2.0); EOSINOPHILS % 2.3 % (0.0-5.0); HEMATOCRIT. 36.1 % (36.0-48.0); HEMOGLOBIN. 12.1 g/dL (12.0-16.0); LYMPHOCYTES % 30.8 % (20.0-50.0); MEAN CORPUSCULAR HEMOGLOBIN 32.9 pg (28.0-32.0); MEAN CORPUSCULAR HGB CONC 33.5 g/dL (31.0-37.0); MEAN CORPUSCULAR VOLUME 98.3 fL (81.0-99.0); MEAN PLATELET VOLUME 9.4 fl (7.4-10.4); MONOCYTES % 7.6 % (2.0-8.0); NEUTROPHILS % 58.6 % (40.0-76.0); PLATELET 228 x1000/uL (130-400); RED BLOOD CELL COUNT 3.67 mill/uL (4.2-5.4); RED CELL DISTRIBUTION WIDTH 16.6 % (11.6-14.6); WHITE BLOOD COUNT 5.9 x1000/uL (4.5-11.0)
[2024-07-10] MEDS: POTASSIUM CHLORIDE 20MEQ/PACKET PO SCH (08:14)
[2024-07-10 09:06] LABS: COMPLEMENT C3 85 mg/dL (82-167); COMPLEMENT C4 26 mg/dL (12-38)
[2024-07-10 11:50] VITALS: BP 95/58; PULSE 83; RESP 18; TEMP 36.44736; O2SAT 96
[2024-07-10] MEDS: VANCOMYCIN 750MG PREMIX 150 ML IV SCH (14:17)
[2024-07-10 16:13] VITALS: BP 116/77; PULSE 77; RESP 18; TEMP 36.22512; O2SAT 97
[2024-07-10 20:00] VITALS: BP 110/73; PULSE 89; RESP 20; TEMP 36.22512; O2SAT 98
[2024-07-10] MEDS: DIPHENHYDRAMINE 50MG CAPSULE PO NR (22:05)
[2024-07-10] MEDS: ACETAMINOPHEN 325MG TABLET PO PRN (22:07)
[2024-07-11] VITALS: BP 118/69; PULSE 86; RESP 20; TEMP 36.33624; O2SAT 96
[2024-07-11 04:00] VITALS: BP 118/71; PULSE 80; RESP 18; TEMP 36.16956; O2SAT 98
[2024-07-11 06:33] LABS: CARBON DIOXIDE 33 mEq/L (21-32); CHLORIDE 103 mEq/L (98-107); POTASSIUM 3.1 mEq/L (3.5-5.1); SODIUM 139 mEq/L (136-145)
[2024-07-11 06:34] LABS: CALCIUM 8.8 mg/dL (8.7-10.4)
[2024-07-11 06:39] LABS: CREATININE 0.7 mg/dL (0.6-1.0); GLUCOSE 82 mg/dL (70-105)
[2024-07-11 06:40] LABS: UREA NITROGEN BLOOD 15 mg/dL (9-23)
[2024-07-11 06:49] LABS: BASOPHILS % 0.4 % (0.0-2.0); EOSINOPHILS % 3.6 % (0.0-5.0); HEMATOCRIT. 35.3 % (36.0-48.0); HEMOGLOBIN. 11.7 g/dL (12.0-16.0); LYMPHOCYTES % 41.4 % (20.0-50.0); MEAN CORPUSCULAR HEMOGLOBIN 32.5 pg (28.0-32.0); MEAN CORPUSCULAR HGB CONC 33.3 g/dL (31.0-37.0); MEAN CORPUSCULAR VOLUME 97.6 fL (81.0-99.0); MEAN PLATELET VOLUME 9.3 fl (7.4-10.4); MONOCYTES % 6.5 % (2.0-8.0); NEUTROPHILS % 48.1 % (40.0-76.0); PLATELET 224 x1000/uL (130-400); RED BLOOD CELL COUNT 3.61 mill/uL (4.2-5.4); RED CELL DISTRIBUTION WIDTH 16.6 % (11.6-14.6); WHITE BLOOD COUNT 5.8 x1000/uL (4.5-11.0)
[2024-07-11 08:00] VITALS: BP 131/93; PULSE 82; RESP 18; TEMP 36.3918; O2SAT 98
[2024-07-11] MEDS: VANCOMYCIN 1G PREMIX 200 ML IV SCH (10:00)
[2024-07-11] MEDS: ENOXAPARIN 40MG/0.4ML SYR SUBCUT SCH (10:46)
[2024-07-11 12:00] VITALS: BP 123/59; PULSE 80; RESP 18; TEMP 35.89176; O2SAT 97
[2024-07-11 16:00] VITALS: BP 137/93; PULSE 85; RESP 18; TEMP 36.00288; O2SAT 99
[2024-07-11 20:00] VITALS: BP 122/77; PULSE 86; RESP 18; TEMP 37.00296; O2SAT 97
[2024-07-11] MEDS: DIPHENHYDRAMINE 50MG CAPSULE PO PRN (21:55)
[2024-07-12] VITALS: BP 126/75; PULSE 90; RESP 20; TEMP 36.55848; O2SAT 97
[2024-07-12 04:00] VITALS: BP 126/81; PULSE 91; RESP 20; TEMP 36.6696; O2SAT 97
[2024-07-12 08:00] VITALS: BP 147/93; PULSE 80; RESP 18; TEMP 36.50292; O2SAT 99
[2024-07-12 08:27] LABS: CHLORIDE 104 mEq/L (98-107); POTASSIUM 3.4 mEq/L (3.5-5.1); SODIUM 138 mEq/L (136-145)
[2024-07-12 08:28] LABS: CALCIUM 8.8 mg/dL (8.7-10.4); CARBON DIOXIDE 28 mEq/L (21-32)
[2024-07-12 08:33] LABS: CREATININE 0.6 mg/dL (0.6-1.0); GLUCOSE 87 mg/dL (70-105); UREA NITROGEN BLOOD 6 mg/dL (9-23)
[2024-07-12 09:27] LABS: BASOPHILS % 0.5 % (0.0-2.0); EOSINOPHILS % 4.3 % (0.0-5.0); HEMATOCRIT. 34.8 % (36.0-48.0); HEMOGLOBIN. 11.8 g/dL (12.0-16.0); LYMPHOCYTES % 43.2 % (20.0-50.0); MEAN CORPUSCULAR HEMOGLOBIN 33.1 pg (28.0-32.0); MEAN CORPUSCULAR HGB CONC 33.9 g/dL (31.0-37.0); MEAN CORPUSCULAR VOLUME 97.7 fL (81.0-99.0); MEAN PLATELET VOLUME 9.7 fl (7.4-10.4); MONOCYTES % 8.1 % (2.0-8.0); NEUTROPHILS % 43.9 % (40.0-76.0); PLATELET 236 x1000/uL (130-400); RED BLOOD CELL COUNT 3.56 mill/uL (4.2-5.4); RED CELL DISTRIBUTION WIDTH 16.2 % (11.6-14.6); WHITE BLOOD COUNT 5.5 x1000/uL (4.5-11.0)
[2024-07-12 12:00] VITALS: BP 137/86; PULSE 104; RESP 18; TEMP 36.50292; O2SAT 97
[2024-07-12] MEDS: CEFTRIAXONE SODIUM 1G VIAL IM NR (13:15)
[2024-07-12 16:00] VITALS: BP 131/92; PULSE 89; RESP 20; TEMP 35.89176; O2SAT 98
[2024-07-12 20:00] VITALS: BP 130/87; PULSE 87; RESP 20; TEMP 36.89184; O2SAT 97
[2024-07-13] VITALS: BP 140/70; PULSE 80; RESP 18; TEMP 36.114; O2SAT 97
[2024-07-13 04:00] VITALS: BP 121/79; PULSE 82; RESP 18; TEMP 37.00296; O2SAT 97
[2024-07-13 08:00] VITALS: BP 131/85; PULSE 87; RESP 20; TEMP 36.6696; O2SAT 98
[2024-07-13 09:10] LABS: A/G RATIO 0.9 (0.7-1.7); ALBUMIN 2.9 g/dL (2.9-4.4); ALPHA-1-GLOBULIN 0.3 g/dL (0.0-0.4); ALPHA-2-GLOBULIN 0.8 g/dL (0.4-1.0); BETA GLOBULIN 0.9 g/dL (0.7-1.3); GAMMA GLOBULINS 1.2 g/dL (0.4-1.8); GLOBULIN TOTAL 3.2 g/dL (2.2-3.9); M-SPIKE Not Observed g/dL (Not Observed); TOTAL PROTEIN SERUM 6.1 g/dL (6.0-8.5)
[2024-07-13 12:00] VITALS: BP 120/85; PULSE 90; RESP 20; TEMP 36.50292; O2SAT 98
[2024-07-13 16:00] VITALS: BP 143/98; PULSE 92; RESP 18; TEMP 36.50292; O2SAT 98
[2024-07-13 17:24] VITALS: BP 132/68; PULSE 78; TEMP 97.1; O2SAT 97
[2024-07-16 04:08] LABS: ANA IFA Negative (.)
== END 2024-07-13 19:14 | DRG 720 ==
LOC: ER 18:49 → 8WST 21:10 → EDBEDREQSVC 21:23 → EDBEDREQ 21:23 → EDBEDREQTM 21:23 → EDBEDREQSVC 07-08 02:00
PROVIDERS: ADMIT Internal Medicine; ATTEND Internal Medicine
PROC: 3E0F7SF Introduction of Other Gas into Respiratory Tract, Via Natural or Artificial Opening (ICD-10-PCS; principal; 2024-07-07)
DX: A41.9 Sepsis, unspecified organism (principal); I21.4 Non-ST elevation (NSTEMI) myocardial infarction; R65.21 Severe sepsis with septic shock; G92.8 Other toxic encephalopathy; N17.9 Acute kidney failure, unspecified; E11.22 Type 2 diabetes mellitus with diabetic chronic kidney disease; D64.9 Anemia, unspecified; E86.0 Dehydration; I48.0 Paroxysmal atrial fibrillation; E78.5 Hyperlipidemia, unspecified; I25.10 Atherosclerotic heart disease of native coronary artery without angina pectoris; I12.9 Hypertensive chronic kidney disease with stage 1 through stage 4 chronic kidney disease, or unspecified chronic kidney disease; Z66 Do not resuscitate; N39.0 Urinary tract infection, site not specified; E87.6 Hypokalemia; R26.9 Unspecified abnormalities of gait and mobility; G89.29 Other chronic pain; J45.909 Unspecified asthma, uncomplicated; N18.9 Chronic kidney disease, unspecified; Z79.899 Other long term (current) drug therapy; Z91.81 History of falling; Z88.8 Allergy status to other drugs, medicaments and biological substances
CPT/HCPCS: 36415; 71045; 76770; 80048; 80053; 80061; 80076; 80202; 80307; 80320; 80329; 81003; 82550; 82553; 83036; 83605; 83735; 83880; 83970; 84100; 84132; 84145; 84155; 84156; 84165; 84166; 84439; 84443; 84484; 85025; 85027; 85379; 86160; 86256; 86705; 86709; 87340; 93005; 93306; 93970; 97162; 99291; C1893; J0282; J0692; J0696; J1650; J2405; J2543; J3370; J3475; J3480; J3490; J7060; Q0163; G0480

== ENCOUNTER 2025-07-16 03:53 | Emergency (ER) | payer OTHER ==
[~2025-07-16] VITALS: Ht 167.6 cm; Wt 118.0 kg
[~2025-07-16 03:53] MED LIST changes: +CARI-517 PO; -CARI350T27 PO
[2025-07-16 03:57] VITALS: O2SAT 96
[2025-07-16] MEDS ORDERED: CEPH500C2 MT (05:12)
[2025-07-16] MEDS ORDERED: BO1 TP (05:13)
[2025-07-16] MEDS: CEPHALEXIN 250MG CAPSULE PO ONE (05:21)
[2025-07-16 05:27] VITALS: BP 145/92; PULSE 83; RESP 18; TEMP 37.2; O2SAT 97
== END 2025-07-16 05:31 | disposition home or self-care (01) ==
LOC: ER 03:53
DX: L03.116 Cellulitis of left lower limb (principal); L03.115 Cellulitis of right lower limb; L89.891 Pressure ulcer of other site, stage 1; I10 Essential (primary) hypertension; J45.909 Unspecified asthma, uncomplicated; Z79.899 Other long term (current) drug therapy; Z88.8 Allergy status to other drugs, medicaments and biological substances; Z91.030 Bee allergy status
CPT/HCPCS: 99283

== ENCOUNTER 2025-09-15 08:47 | Emergency (ER) | payer OTHER ==
[~2025-09-15] VITALS: Ht 170.2 cm; Wt 110.0 kg
[~2025-09-15 08:47] MED LIST changes: +BO1 TP; +CEPH500C2 MT
[2025-09-15 08:59] VITALS: BP 199/119; PULSE 84; RESP 15; TEMP 36.8; O2SAT 100
[2025-09-15] MEDS: DIPHENHYDRAMINE 50MG/ML VIAL IM ONE (09:09)
[2025-09-15] MEDS ORDERED: CEPH500T PO (09:46)
[2025-09-15] MEDS ORDERED: SULF1TAB48 PO (09:46)
[2025-09-15] MEDS ORDERED: EPIN0.3P3 IM (12:43)
== END 2025-09-15 10:09 | disposition home or self-care (01) ==
LOC: ER 08:47
DX: L03.114 Cellulitis of left upper limb (principal); J45.909 Unspecified asthma, uncomplicated; I10 Essential (primary) hypertension; Z79.899 Other long term (current) drug therapy; Z88.8 Allergy status to other drugs, medicaments and biological substances; Z91.030 Bee allergy status
CPT/HCPCS: 99283; 96372; J1200

== ENCOUNTER 2025-09-15 10:50 | Emergency (ER) | payer OTHER ==
[~2025-09-15] VITALS: Ht 170.2 cm; Wt 120.0 kg
[~2025-09-15 10:50] MED LIST changes: +CEPH500T PO; +SULF1TAB48 PO
[2025-09-15 11:00] VITALS: BP 199/124; TEMP 36.8; O2SAT 98
[2025-09-15 11:05] VITALS: PULSE 86; RESP 18; O2SAT 99
[2025-09-15] MEDS ORDERED: EPIN0.3P3 IM (12:43)
[2025-09-15] MEDS: BACITRACIN ZINC OINT UDPKT TOP ONE (12:47)
== END 2025-09-15 13:07 | disposition home or self-care (01) ==
LOC: ER 10:50
DX: T63.301A Toxic effect of unspecified spider venom, accidental (unintentional), initial encounter (principal); I10 Essential (primary) hypertension; J45.909 Unspecified asthma, uncomplicated; Z79.899 Other long term (current) drug therapy; Z86.73 Personal history of transient ischemic attack (TIA), and cerebral infarction without residual deficits; Z88.8 Allergy status to other drugs, medicaments and biological substances; X58.XXXA Exposure to other specified factors, initial encounter; Y93.89 Activity, other specified; Y92.89 Other specified places as the place of occurrence of the external cause; Y99.8 Other external cause status
CPT/HCPCS: 99282